=== PATIENT | female | born 1965 | race Caucasian/White ===

== ENCOUNTER → 2023-12-09 20:04 | Outpatient (REF) | payer OTHER, SELFPAY | LOC: MRI 3T 20:04 | PROVIDERS: ATTENDING PHYSICIAN Physician Assistant | DX: M54.2 Cervicalgia (principal); G89.28 Other chronic postprocedural pain; Z98.890 Other specified postprocedural states | CPT/HCPCS: 72141 ==

== ENCOUNTER 2025-01-29 15:20 | Inpatient (IN) | payer OTHER, SELFPAY ==
[2025-01-29] VITALS (7 sets, daily range): BP systolic 126–165; BP diastolic 69–90; BMI 43.2; BMI 41.6
[2025-01-29 13:25] LABS: Hematocrit 40.5 % (37.0-47.0); Hemoglobin 13.9 g/dL (12.0-16.0); Mean Corp Hgb Conc. 34.3 g/dL (33.0-37.0); Mean Corpuscular Volume 93.5 fL (81.0-99.0); Nucleated Red Blood Cells % 0 %; Platelet Count 296 10^3/uL (130-400); Red Cell Dist. Width 12.7 % (11.5-14.5)
[2025-01-29 13:41] LABS: ALT (SGPT) 42 U/L (0-35); AST (SGOT) 48 U/L (14-36); Albumin 4.3 g/dl (3.5-5.0); Alkaline Phosphatase 94 U/L (38-126); Blood Urea Nitrogen 15 mg/dl (7-17); Calcium 9.5 mg/dl (8.4-10.2); Carbon Dioxide 24 mmol/L (22-30); Chloride 107 mmol/L (98-107); Estimated Creatinine Clearance 118 ml/min; Glucose 112 mg/dl (70-99); Potassium 3.8 mmol/L (3.5-5.1); Sodium 138 mmol/L (135-145); Total Protein 7.3 g/dl (6.3-8.2); eGFR > 60.00
[2025-01-29] MEDS: DECADRON 10 MG IV (13:43)
[2025-01-29] MEDS: DUONEB 3 ML INH ×3 (13:43→23:10)
--- NOTE | 2025-01-29 14:05 | ED.GENMED ---
History of Present Illness
General
Chief Complaint: Breathing Problem
Source: patient
Exam Limitations: none
Time Seen by Provider: 01/29/25 13:21
Nursing documentation reviewed up to this point in time: agreed with
History of Present Illness
History of Present Illness:
59-year-old female cough shortness of breath history of asthma history of colon cancer no history of DVT PE has been coughing and wheezing for a few days, seen in urgent care given steroids antibiotics and albuterol symptoms persisted, no fever no
hemoptysis
Past History
Past History
ED Past Medical History: Asthma and Other (Stomach ulcers)
ED Past Surgical History: Appendectomy, Gynecological (Ovarian cyst, right oophorectomy) and Orthopedic (Cervical fusion)
Social History
Tobacco: Former smoker
Alcohol: None
Drug: None
Personal: Single
Living: with family
Employment: Retired
Phy Exam
Physical Exam
Physical Exam:
Physical Exam
General: 59 female sitting upright coughing
Neck: No jaundice
Heart: s1/s2 regular rate and rhythm, no murmur. equal radial pulses.
Lungs: Wheezing rhonchi
Abdomen: Nontender
Neuro: alert and oriented. no focal neurological deficits
Skin: no rash
Psychiatric: well kept. interactive and cooperative
Extremities: no edema. no calf tenderness.
Scores
Heart Failure Risk
Heart Failure Risk Score: Not Applicable
Course
Orders/Labs/Results
Orders:
Orders
01/29/25 13:08
Electrocardiogram (*1) Urgent
Reason for Study: Chest Pain
EKG- Treatment ONCE
01/29/25 13:12
Complete Blood Count/With Diff Urgent
Comprehensive Metabolic Panel Urgent
01/29/25 13:39
CR Chest Portable - 1 View Urgent
Comment:
Reason For Exam: sob
Reason Study Needs to be Portable: Patient Unstable
01/29/25 13:40
IV Insert/Care/Rem.- Treatment PRN
Dexamethasone Sod Phosphate [Decadron] 10 mg IV NOW STA
Ipratropium/Albuterol Sulfate [Duoneb] 3 ml INH R NOW STA
01/29/25 14:19
NT-proBNP Urgent
Comment: ADD ON
Troponin I Urgent
01/29/25 14:22
COVID-19 Antigen Urgent
Source: Nasal Swab
Influenza A+B Rapid Molecular Urgent
SARA Source: Nasal Swab
Specimen Description:
01/29/25 14:47
Albuterol Sulfate [Ventolin Nebules] 7.5 mg INH R NOW STA
01/29/25 Dinner
Cholesterol Lowering
At Your Request: Full Participation
Does patient need a safe tray?: No
Cholesterol Lowering: Sodium, 2 Gram
01/29/25 15:01
Admit/Transfer Patient As Directed
Co-Sign Provider:
Level of Care: Inpatient admission
Assign to:: Telemetry
Physician / Group: albert griffiths
Diagnosis: acute hypoxic resp insuff 2/2 status asthmaticus, abn ekg
Reason for Telemetry: Arrhythmia
Date to Stop Telemetry: 02/01/25
Time to Stop Telemetry: 11:00
Reason for Hospitalization: acute hypoxic resp insuff 2/2 status asthmaticus, abn ekg
Expected length of stay greater than two midnights?: Yes
ELOS- Estimated Length of Stay in days: 3
I certify the patient meets the requirements for IP care: Yes
Code Status As Directed
Resuscitation Status: Full Code
01/29/25 15:04
PRN Pain Medication Management As Directed
May give lesser potent ordered pain med per pt: Yes
preference::
Protocol:: Medication orders for pain may be administered in a
manner that supports deferring to patient preference
when the pt is:
- Requesting an ordered lesser potent pain medication.
Least to most potent pain medications are defined
as: acetaminophen < NSAID < tramadol < opioids
(morphine, oxycodone, hydromorphone).
- Requesting a lesser dose of the same medication IF
ORDERED.
- Requesting a less intrusive route of administration
if both routes are prescribed by the provider (PO <
IV).
01/29/25 19:00
Acetaminophen [Tylenol] 650 mg PO Q4HPRN PRN
Ipratropium/Albuterol Sulfate [Duoneb] 3 ml INH R Q4HPRN PRN
01/29/25 19:27
Enoxaparin Sodium [Lovenox] 40 mg SC QPM
Ipratropium/Albuterol Sulfate [Duoneb] 3 ml INH R QID
01/29/25 19:27
Activity As Directed
Activity Level: As Tolerated
Vital Signs As Directed
Frequency: Per unit guidelines
O2 Therapy [RESP] Routine
Nasal Cannula Liter Flow: 2 LPM
Titrate/Wean O2 to maintain O2 sat greater than (%): 92
Pulse Ox/spot Check [RESP] Routine
Quantity: 1
Pt Eval And Treat Routine
Activity Level: As Tolerated
DX Deep Vein Thrombosis Video Routine
01/29/25 20:00
Benzonatate [Tessalon Perles] 100 mg PO BIDPRN PRN cough
01/29/25 22:00
Citalopram [Celexa] 10 mg PO HS
Trazodone [Desyrel] 50 mg PO HSPRN PRN sleep
01/30/25 06:57
Cardiovascular Evaluation IN AM
Complete Blood Count/With Diff IN AM
Comprehensive Metabolic Panel IN AM
Hgba1c [Glycohemoglobin (HgbA1c)] IN AM
01/31/25 06:00
Complete Blood Count/With Diff IN AM
Comprehensive Metabolic Panel IN AM
02/01/25 06:00
Complete Blood Count/With Diff IN AM
Comprehensive Metabolic Panel IN AM
02/01/25 11:00
DC Protocol for Telemetry ONCE
Abnormal Lab Results
01/29/25
13:12
WBC 13.0 H 10^3/uL
(4.8-10.8)
MCH 32.1 H pg
(27.0-31.0)
Abs Immat Gran (auto) 0.1 H 10^3/uL
(0-0.05)
Absolute Neuts (auto) 7.6 H 10^3/uL
(1.4-6.5)
Absolute Lymphs (auto) 4.3 H 10^3/uL
(1.2-3.4)
Absolute Monos (auto) 0.8 H 10^3/uL
(0.1-0.6)
Glucose 112 H mg/dl
(70-99)
AST 48 H U/L
(14-36)
ALT 42 H U/L
(0-35)
01/29/25 13:12
01/29/25 13:12
Vital Signs
Initial and Last Documented VS:
Initial Vital Signs
Pulse Resp BP Pulse Ox
67 15 126/72 93
01/29/25 13:09 01/29/25 13:09 01/29/25 13:09 01/29/25 13:09
Last Documented Vital Signs
Temp Pulse Resp BP Pulse Ox
97.9 F 72 18 120/54 94
01/30/25 03:00 01/30/25 03:00 01/30/25 03:00 01/30/25 03:00 01/30/25 03:00
MDM/Problems Addressed
Differential Diagnosis Includes:
Asthmatic bronchitis bronchitis heart failure pneumonia
MDM/Problems Addressed:
Cough shortness of breath
Chronic conditions affecting care: Asthma
Acute Exacerbation and/or Progression of Chronic Illness: Asthma
*Pulse Oximetry
SaO2: 93
Nasal Cannula flow liters per minute: 2
Oxygen Mode of Delivery: Simple mask
Patient hypoxic: yes
*EKG
Interpretation: abnormal
Comparison EKG: no comparison EKG present
Heart Rate: 78
Rate: normal
Rhythm: sinus
Ischemia: ST depression
*Solar System Designer Interpretation
Rate: normal
Interpretation: normal
Heart Rate: 78
Rhythm: sinus
*Critical Care Note
Total Time (30-74mins, 75-104mins- exclusive of procedures): 22
Update Note
Update Note:
Update suspect asthmatic bronchitis, cough shortness of breath, does have an abnormal EKG no old in our system,
Chest x-ray noted will add troponin
Patient likely require admission
ED Attending Note
-
Portions of this chart may have been created with voice recognition software.� Occasional wrong word or��sound alike� substitutions may have occurred due to the inherent limitations of voice recognition software.
Discharge Plan
Departure
Patient Disposition: Admit
Date of Disposition: 01/29/25
Time of Disposition: 14:12
Admit to: Telemetry
Presentation/result/management discussed w/ accepting MD/DO: Hospitalist
Patient with high blood pressure during this ER visit?: No
Condition: Fair
Discharge Problem:
Asthma exacerbation
Interventions
Interventions:
*Risk Screen - Suicide Last Done: 01/29/25 13:10
*General Assessment Last Done: 01/29/25 13:09
*Neglect/Abuse Screening Last Done: 01/29/25 13:10
*ED COVID-19 Vaccine History Last Done: 01/29/25 13:09
*ED Influenza Vaccine History Last Done: 01/29/25 13:09
*Nursing Disposition Last Done: 01/29/25 19:06
ED- Cardiac Assessment Last Done: 01/29/25 13:14
ED- Pulmonary Assessment Last Done: 01/29/25 13:14
Discharge Date and Time
Discharge Date/Time: 01/29/25 19:07
--- NOTE | 2025-01-29 14:23 | HPS.HSE ---
Addendum entered and electronically signed by Greg Walter MD 01/29/25 16:21:
I saw and examined the patient.
The SALON SUPERVISOR or PA's note was reviewed and I agree with the note.
Comment:
59-year-old female with history of asthma complaining of coughing and wheezing over the past 2 weeks. Recent travel to [place] by plane. She was seen at urgent care on 01/27/2025 given steroids, antibiotics and albuterol where she has taken for 3 days
but symptoms have persisted.
Physical Exam
General: Conversant; No Pain, Fever or Chills
HEENT: Normocephalic, Anicteric, Moist mucous membranes, PERRLA, Ark[place] Conjunctivae and No Ptosis
Respiratory: less wheezes.
Cardiac: S1/S2 and Regular Rhythm; No Murmur, Rub, Gallop or Peripheral Edema
GI: Soft, Non Tender, Non Distended, Normal Bowel Sounds.
Genito-urinary: No Matos
Musculoskeletal: No Clubbing, No Cyanosis and No Edema
Skin: Warm and Dry; No Rash
Neuro: AO x 3, No Motor Deficits, Nonfocal/grossly intact, Cranial Nerves Intact and No Sensory Deficits; No Slurred Speech, Facial Droop, Tremors or Sedated
Psych: Calm
A/P
#Asthma exacerbation likely triggered by viral URI
-DuoNebs every 6 hours
-Dexamethasone 4 mg every 12 hours
-Chest x-ray does not appear to show any abnormalities
-D-dimer elevated 0.6
-CT PE result pending with recent travel.
# History of tracheomalacia
tries to sit up and avoid flat position
# Acute hypoxic respiratory insufficiency
SaO2 89- 90 % on RA
add O2 treatment
# Abnormal EKG
No chest pain
Positive SOB/ tightness but with asthma attack
negative troponin
#Transaminitis likely due to hepatic steatosis
#History of chronic back pain
#History of peptic ulcer
#Depression
#Obesity secondary to excess calories
Full code
DVT prophylaxis�heparin
Regular diet
Total time spent to see the patient, examine the patient, review data and lab result, discuss treatment plan with patient, ER doctor, nursing staff around 75 minutes
Original Note:
Family Physician
-
Family Physician:
Chief Complaint
-
Shortness of breath, wheezing x 2 weeks
History of Present Illness
59-year-old female with history of asthma complaining of coughing and wheezing over the past 2 weeks. She reports she was in [facility] 3 weeks ago attending a wedding. She returned home then became sick within 1 week. She was
seen at urgent care on 01/27/2025 given steroids, antibiotics and albuterol where she has taken for 3 days but symptoms have persisted. She returned to the urgent care today where she was actively wheezing and hypoxic was sent to the ER by EMS.
She denies fever, chills, hemoptysis, chest pain, palpitations, abdominal pain, nausea, vomiting, diarrhea, urinary symptoms. She has past medical history of asthma�mild, gastric ulcers, former smoker, anxiety, headaches, colon cancer status post
colon resection January 2023 and chemotherapy for 3 months, class III obesity.
Medical History
Past Medical History
Past Medical History: Reports Other
Additional Past Medical History:
asthma
gastric ulcers
former smoker
anxiety
headaches
Colon cancer status post colon resection January 2023 and chemotherapy for 3 months
class III obesity.
Past Surgical History: Reports Other
Additional Past Surgical History:
Colon cancer status post colon resection January 2023
Appendectomy
Ovarian cyst removal
Cervical fusion
Social History
Tobacco: Former Smoker (5 years stopped early 20s)
Alcohol: Occasional (1 drink a month)
Personal: Single
Living: Alone
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
Family History
Family History: Other (Mother history of COPD hypertension age 82 Father history OR, HLD age 70, 1 brother sleep apnea 1 sister history of cardiac arrhythmias, 2 paternal half sisters healthy)
Allergies / Home Medications
Allergies reflects when Allergies were last updated in [employer].
Home Medications with original date entered in [employer]
Allergy/Medication List:
Allergies
Allergy/AdvReac Type Severity Reaction Status Date / Time
No Known Allergies Allergy Verified 07/02/22 15:45
Home Medications
azithromycin 250 mg tablet 0 mg PO .COMPLEX 01/29/25
benzonatate 100 mg capsule 100 mg PO BIDPRN PRN cough 01/29/25
citalopram 10 mg tablet (Celexa) 10 mg PO HS 01/29/25
prednisone 20 mg tablet 40 mg PO DAILY 01/29/25
trazodone 50 mg tablet 50 mg PO HSPRN PRN sleep 01/29/25
Review of Systems
-
History Source: Patient
A 12 point ROS was completed and negative except as noted: Yes
Constitutional: Denies Fever, Fatigue or Chills
EENT: Denies Sore Throat or Runny Nose
Respiratory: Reports Cough and Trouble Breathing (Wheezing)
Cardiac: Denies Chest Pain, Diaphoresis, Palpitations or Syncope
Abdomen/GI: Denies Abdominal Pain, Nausea, Vomiting, Diarrhea, Constipated, Bloody Stools or Black Stools
: Denies Dysuria, Frequency, Flank Pain, Incontinence or Difficulty Voiding
Musculoskeletal: Denies Joint Pain or Edema
Skin: Denies Itching or Rash
Neurological: Denies Dizzy, Headache or Weakness
Endocrine: Reports No Symptoms
Hematologic/Lymphatic: Reports No Symptoms
Psych: Reports Calm
Physical Exam
Vital Signs
Vital Signs
Temp Pulse Resp BP Pulse Ox
98.0 F 66 14 135/90 90
01/29/25 13:11 01/29/25 14:15 01/29/25 14:00 01/29/25 14:00 01/29/25 14:15
Physical Exam
General: Conversant; No Pain, Fever or Chills
HEENT: NormoCephalic, Anicteric, Moist mucous membranes, PERRLA, Arkoma Conjunctivae and No Ptosis
Respiratory: Wheezes (Expiratory increased throughout left lung field); No Rales or Rhonchi
Cardiac: S1/S2 and Regular Rhythm; No Murmur, Rub, Gallop or Peripheral Edema
GI: Soft, Non Tender, Non Distended, Normal Bowel Sounds and No Hepatosplenomegaly
Rectal: Deferred by Provider
Genito-urinary: Deferred by me
Musculoskeletal: No Clubbing, No Cyanosis and No Edema
Skin: Warm and Dry; No Rash
Neuro: AO x 3, No Motor Deficits, Nonfocal/grossly intact, Cranial Nerves Intact and No Sensory Deficits; No Slurred Speech, Facial Droop, Tremors or Sedated
Psych: Calm
Laboratory Results
-
01/29/25 13:12
01/29/25 13:12
Laboratory Results
Total Bilirubin 0.6 mg/dl (0.2-1.3) 01/29/25 13:12
AST 48 U/L (14-36) H 01/29/25 13:12
ALT 42 U/L (0-35) H 01/29/25 13:12
Alkaline Phosphatase 94 U/L (38-126) 01/29/25 13:12
Impression/Plan
-
Impression/plan:
Admit to telemetry
#Status asthmaticus/history asthma�mild
#Acute hypoxic respiratory insufficiency secondary to status asthmaticus
History of suspected tracheomalacia 07/03/2022
No history of intubations, COVID/influenza negative
90-93% 2 L nasal cannula
- Recently treated with steroids prednisone 40 mg, Zithromax albuterol at urgent care 01/27/2025
-Decadron 10 mg given in ER
- Continue Decadron 4 mg every 12 hours
- DuoNebs scheduled and as needed
- Will consult pulmonary
-Start budesonide
-Will check CT PE along with CT abdomen pelvis as patient is due on Tuesday given history of colon cancer
-IV NSS
CXR: No acute cardiopulmonary process
#ST depression anterior lateral leads current history hypoxia
EKG NSR 76 bpm, QTc [address] depressions in anterior lateral leads no prior EKGs
- Follow troponin
- Consult [facility] cardiology
#History of suspected KACIE
Patient has never had outpatient sleep study completed
#Leukocytosis likely secondary to recent steroid use
WBC 13 afebrile
#Mild transaminitis likely reactive
AST 48, ALT 42 will trend
#Former smoker
Smoked for 5 years quit mid 20s
#Anxiety
-Continue Celexa
#Colon cancer status post colon resection January 2023 and chemotherapy for 3 months
Patient due for CT chest abdomen pelvis on 02/04/2025-we will check today 01/29/2025
Follows with [facility]
#Class III obesity�BMI 43.2
Affects all aspects of care
Weight loss recommended
Other PMH:
History of shingles in past
History of gastric ulcers
Headaches�no acute headache today
DVT prophylaxis
Subcu Lovenox unless CT PE positive then we will change
Full code
[2025-01-29 14:58] LABS: COVID-19 Antigen Negative (Negative)
[2025-01-29] MEDS: VENTOLIN NEBULES 7.5 MG INH (15:04)
[2025-01-29 15:08] LABS: Troponin I < 0.012 ng/ml
--- NOTE | 2025-01-29 16:12 | EDCM ---
CM reviewed chart and met with pt bedside in ED. Lives alone in 2 story home but stays on first floor, no PEDRITO.
Independent in ADLs, personal care and ambulation at baseline. No assistive devices. Only DME is Nebulizer machine from [employer].
Confirms prescription coverage.
No hx VN or SNF.
PCP: Tamela Mathis
Pharmacy: [facility] .
Anticipate discharge home, CM will continue to follow for all discharge planning needs.
--- NOTE | 2025-01-29 16:15 | CON.CAR ---
Addendum entered and electronically signed by Dariel Slater MD 01/29/25 18:36:
59-year-old woman admitted with acute asthma, now with deep anterolateral T wave inversions and prolonged QT. Troponin is undetectable.
PMH: Asthma, peptic ulcer disease, depression, chronic back pain, cervical discectomy, colon cancer status post resection and chemotherapy, tracheomalacia benign positional vertigo, migraines, morbid obesity
Outpatient meds: Reviewed
138/87, pulse 79, respiratory rate 28, afebrile, obese, some respiratory distress, diffuse wheezes, regular rate and rhythm, soft systolic murmur base to apex, extremities with 1-2+ edema
Chest x-ray: Cardiomegaly, increased interstitial markings
ECG: Sinus rhythm deep anterolateral T wave inversion suggestive of ischemia
White count 13.0, BUN and creatinine are 15 and 0.6, potassium is 3.8, troponin undetectable, proBNP pending
Chest CT: Negative for PE
Impression:
Acute exacerbation of asthmatic bronchitis
Anterolateral T wave inversions suspicious for ACS, but with negative troponin
Tracheomalacia
Cervical discectomy
Colon cancer, resected and chemotherapy presumably 5-FU
Plan:
Note below reviewed in detail and agree, unless otherwise specified
She presents with an acute exacerbation of asthmatic bronchitis, with some respiratory distress.
Her EKG is consistent with anterolateral ischemia, though her troponin is undetectable. No prior EKGs are currently available. She has no history of chest pain. There is however a murmur.
Diagnostic considerations would be ACS days-weeks weeks ago with subsequent improvement in LAD distribution perfusion such that troponin has normalized, Takotsubo cardiomyopathy related to severe acute exacerbation of asthmatic bronchitis, or
possibly apical hypertrophic cardiomyopathy with longstanding EKG changes. With presumed prior treatment to 5-FU, her risk of vascular events is increased.
Will proceed with echocardiography and trend troponins and EKGs.
Eventually she will need an ischemic evaluation, pharmacologic sestamibi study probably contraindicated at present related to pulmonary status, exercise sestamibi versus catheterization would be reasonable if she can ambulate.
We will continue to follow.
Original Note:
Consultation
Consultation Request
Date/Time Consultation Performed: 01/29/25
Requesting Provider: Dr. Walter
Performing Provider: Montse Sams PA-C for Dr. MIKIE Slater
Reason for Consultation: abnormal EKG
Medical History
-
Chief Complaint: SOB
History of Present Illness:
Patient is a 59-year-old female with past medical history of asthma, cervical discectomy, history of colon cancer status postresection and chemotherapy, collapsed trachea diagnosed 06/2024 who presents to [facility] ER for evaluation of 2 weeks of
worsening shortness of breath. She reports after her asthma admission in June 2024 she underwent allergy testing which was significantly positive for ragweed. She states she knows that ragweed levels are very high right now. She states that on
Tuesday she was started on steroid therapy without significant improvement. She reports significant orthopnea, and states she has to sleep essentially sitting up. She denies lower extremity edema or abdominal bloating. She does report some weight
gain, but attributes this to recent steroid use. EKG is noted to be abnormal resulting in cardiology consultation. No prior for comparison in our systems. Denies chest pain. She has family history of CAD in father in his 70s.
PMH:
Asthma
Collapsed trachea diagnosed 06/2024
History of cervical discectomy
History of colon cancer status postresection and chemotherapy
Depression
Obesity
Past Medical History
Past Medical History: Other (In HPI)
Social History
Tobacco: Former Smoker (Remote, in her 20s)
Alcohol: None
Drug: None
Living: Alone
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
Family History
Family History: CAD (in father in his 70s)
Allergies / Home Medications
Allergy/AdvReac Type Severity Reaction Status Date / Time
No Known Allergies Allergy Verified 07/02/22 15:45
�Medication �Instructions �Recorded �Confirmed �Type
azithromycin 250 mg tablet 0 mg PO .COMPLEX 01/29/25 01/29/25 History
benzonatate 100 mg capsule 100 mg PO BIDPRN PRN cough 01/29/25 01/29/25 History
citalopram 10 mg tablet (Celexa) 10 mg PO HS 01/29/25 01/29/25 History
prednisone 20 mg tablet 40 mg PO DAILY 01/29/25 01/29/25 History
trazodone 50 mg tablet 50 mg PO HSPRN PRN sleep 01/29/25 01/29/25 History
Review of Systems
-
History Source: Patient
All other systems: Negative unless noted
Physical Exam
Vital Signs
Temp Pulse Resp BP Pulse Ox
98.0 F 79 28 138/87 91
01/29/25 13:11 01/29/25 15:45 01/29/25 15:45 01/29/25 15:00 01/29/25 15:45
Lab Results
01/29/25 13:12
01/29/25 13:12
Troponin I < 0.012 ng/ml 01/29/25 14:19
Physical Exam
General: Other (Dyspneic, coughing. Obese. On supplemental O2)
HEENT: Normocephalic, Anicteric and Moist Mucous Membranes
Respiratory: Wheezes and Rhonchi
Cardiac: S1/S2 and Regular Rhythm
GI: Soft, Non Tender, Non Distended and Normal Bowel Sounds
Musculoskeletal: No Clubbing, No Cyanosis and No Edema
Skin: Warm and Dry
Neuro: AO x 3
Impression / Plan
-
Primary child care sitter: None
Assessment:
Presentation with shortness of breath
Acute asthma exacerbation
Abnormal EKG
Collapsed trachea diagnosed 06/2024
History of cervical discectomy
History of colon cancer status postresection and chemotherapy
Depression
Obesity
mild LFT elevation
ECHO 01/30/25: pending
Plan:
- Patient presents due to shortness of breath and is being treated for acute asthma exacerbation. Chest x-ray with low lung volumes and no acute cardiopulmonary process.
- Continue supplemental O2, wean as able
- IV steroid therapy as per primary service. Consider pulmonology consultation
- EKG abnormal with essentially diffuse T wave inversion with no prior to compare. Will attempt to obtain prior EKG, patient thinks she had 1 at [facility] in the past. Denies chest pain, with significant cough and reactive airway on exam
- Troponin negative x 1. Trend
- Serial EKGs
- Echo in a.m.
- check proBNP
- check lipids. with mild LFT elevation, follow
- Unless results of above grossly abnormal, would allow to recover from acute asthma exacerbation and would consider for outpatient stress testing for further evaluation
- Will follow
Data Reviewed
-
EKG: Tracing Personally Visualized and interpreted
Radiology: Report Reviewed by me
Labs: Labs Reviewed by me
Old Records: Reviewed
--- NOTE | 2025-01-29 19:35 | PTCARENOTE ---
Pt arrived onto floor @1935. Pt AAOx3 and able to ambulate into room without assistance. Pt on 2L O2, with no complaints of pain at this time. Pt oriented to room and call akng; will continue to monitor
[2025-01-29] MEDS: PULMICORT 0.5 MG INH (19:52)
[2025-01-29] MEDS: DUONEB INH (19:56)
--- NOTE | 2025-01-29 20:02 | PTCARENOTE ---
Rn clinical education academic coordinator- Admission assessment completed remotely via phone.
[2025-01-29] MEDS: LOVENOX 40 MG SC (20:59)
[2025-01-29] MEDS: ASPIRIN 325 MG PO (20:59)
[2025-01-29] MEDS: CELEXA 10 MG PO (21:00)
[2025-01-29] MEDS: ANESTHETIC LOZENGE 1 LOZENGE PO (23:57)
[2025-01-29] MEDS: DECADRON 4 MG IV (23:59)
[2025-01-30] MEDS: TESSALON PERLES 100 MG PO (01:20)
[2025-01-30] MEDS: DUONEB 3 ML INH ×7 (01:27→22:41)
[2025-01-30 03:00] VITALS: BP 120/54
[2025-01-30] MEDS: ANESTHETIC LOZENGE 1 LOZENGE PO (05:23)
[2025-01-30 07:19] LABS: Hematocrit 40.5 % (37.0-47.0); Hemoglobin 13.0 g/dL (12.0-16.0); Mean Corp Hgb Conc. 32.1 g/dL (33.0-37.0); Mean Corpuscular Volume 96.0 fL (81.0-99.0); Nucleated Red Blood Cells % 0 %; Platelet Count 296 10^3/uL (130-400); Red Cell Dist. Width 12.8 % (11.5-14.5)
[2025-01-30 07:35] VITALS: BP 145/75
[2025-01-30 07:40] LABS: ALT (SGPT) 45 U/L (0-35); AST (SGOT) 38 U/L (14-36); Albumin 4.4 g/dl (3.5-5.0); Alkaline Phosphatase 87 U/L (38-126); Blood Urea Nitrogen 14 mg/dl (7-17); Calcium 9.6 mg/dl (8.4-10.2); Carbon Dioxide 27 mmol/L (22-30); Chloride 105 mmol/L (98-107); Estimated Creatinine Clearance 115 ml/min; Glucose 196 mg/dl (70-99); HDL Cholesterol 102 mg/dl; LDL Cholesterol, Calculated 95 mg/dl; Potassium 4.7 mmol/L (3.5-5.1); Sodium 138 mmol/L (135-145); Total Protein 7.3 g/dl (6.3-8.2); Very Low Density Lipoprotein 16 mg/dl (0-30); eGFR > 60.00
[2025-01-30 07:48] LABS: Troponin I < 0.012 ng/ml
[2025-01-30] MEDS: PULMICORT 0.5 MG INH ×2 (08:17→19:37)
[2025-01-30 08:32] LABS: Glycohemoglobin (HgbA1c) 6.1 % (4.0-5.6)
--- NOTE | 2025-01-30 09:43 | CM ---
CM reviewed chart, patient seen bedside.
Patient remains on O2- does not wear home O2. Otherwise independent.
Plan likely home no needs, will continue to follow.
Plan; home no needs, watch for O2 needs if unable to wean
--- NOTE | 2025-01-30 09:44 | CON.PUL ---
Consultation
Consultation Request
Date/Time Consultation Requested: 01/30/2025-8 AM
Date/Time Consultation Performed: 01/30/2025-8:30 AM
Requesting Provider: hospitalist
Performing Provider: Dr. Navarro
Reason for Consultation: Shortness of breath
Medical History
-
Chief Complaint: Shortness of breath/wheezing
History of Present Illness:
59-year-old mild previous smoking female with a history of underlying asthma, allergies, peptic ulcer disease, tracheal [place], depression, chronic back pain last admitted with asthma exacerbation in 2022 admitted with coughing and wheezing for
the past 2 weeks as well as recent plane travel to [place] unresponsive to urgent care prescribed steroids and antibiotics as well as albuterol noted to have asthma exacerbation-pulmonary consulted for asthma/shortness of breath 01/30/2025.
Patient states that she has had progressive shortness of breath, chest wheezing, unresponsive to steroids and albuterol, no chest pain, pleurisy, hemoptysis, abdominal pain, nausea, focal weakness or leg swelling. She does snore at night, feels
unrefreshed and has daytime somnolence.
Past Medical History
Past Medical History: None (Asthma. Allergies. Morbid obesity. KACIE suspected. Gastric ulcers. 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 Anxiety. Colon cancer/resection January 2023/chemotherapy. Appendectomy. Ovarian cyst removal. Cervical fusion.)
Social History
Tobacco: Former Smoker (Less than 5-pack-year quit in her 20s)
Alcohol: Occasional
Drug: None
Personal: Single
Occupational Exposures: No known asbestos exposure
Environmental Exposures: no known tuberculosis exposure
Family History
Family History: Reviewed & Not Pertinent (Mother-COPD and hypertension. Father-CAD hyperlipidemia. Brother-KACIE.)
Allergies / Home Medications
Allergies
Allergy/AdvReac Type Severity Reaction Status Date / Time
No Known Allergies Allergy Verified 07/02/22 15:45
Home Medications
�Medication �Instructions �Recorded �Confirmed �Last Taken �Type
azithromycin 250 mg tablet 0 mg PO .COMPLEX Infection 01/29/25 01/29/25 Unknown History
benzonatate 100 mg capsule 100 mg PO BIDPRN PRN cough 01/29/25 01/29/25 Unknown History
citalopram 10 mg tablet (Celexa) 10 mg PO HS Depression 01/29/25 01/29/25 01/28/25 History
prednisone 20 mg tablet 40 mg PO DAILY Anti-Inflammatory 01/29/25 01/29/25 01/29/25 History
trazodone 50 mg tablet 50 mg PO HSPRN PRN sleep 01/29/25 01/29/25 Unknown History
Review of Systems
-
Unable to Obtain full review of systems at this time due to: Other ( per HPI)
Vitals / Labs / Diagnostic Testing
Vital Signs
Temp Pulse Resp BP Pulse Ox
97.4 F 89 19 145/75 98
01/30/25 07:35 01/30/25 08:25 01/30/25 08:25 01/30/25 07:35 01/30/25 08:25
Lab Data
01/30/25 06:57
01/30/25 06:57
Microbiology
01/29/25 14:22 Nasal Swab Influenza Types A & B (PAULO) - Final
Negative for Influenza A & B, NAAT
Negative results must be combined with clinical observations
and patient history.
Nucleic Acid Amplification test (NAAT)performed on the
[employer] platform.
Diagnostic Testing:
Physical Exam
-
Exam:
Well-nourished and well-developed in no apparent distress
HEENT-atraumatic, normocephalic, thick neck, no stridor
Neck-supple, no JVD, no bruit
Heart-regular rate and rhythm-no murmurs, rubs or gallops
Chest with diminished breath sounds, mildly prolonged expiratory time and forced wheezes and few rhonchi but no crackles
Back-no tenderness
Abdomen-soft, nontender, nondistended, no hepatosplenomegaly
Extremities-no cyanosis, clubbing, edema and good peripheral pulses
Integument-intact, no rashes, lesions or ecchymosis
Neurology-alert and oriented, nonfocal motor and sensory exam
Assessment
-
59-year-old mild previous smoking female with a history of underlying asthma, allergies, peptic ulcer disease, tracheal [place], depression, chronic back pain last admitted with asthma exacerbation in 2022 admitted with coughing and wheezing for
the past 2 weeks as well as recent plane travel to [place] unresponsive to urgent care prescribed steroids and antibiotics as well as albuterol noted to have asthma exacerbation-pulmonary consulted for asthma/shortness of breath 01/30/2025
Asthma-moderate persistent with acute exacerbation
Abnormal EKG-anterolateral T wave abnormalities
Leukocytosis
Mild transaminitis
Hyperglycemia-A1c 6.1
Conditions present prior to admission:
Asthma-mild to moderate persistent-does not follow with pulmonary
Former [id number]-year quit 2020
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
Morbid obesity-BMI 43
Fatty liver
Gallbladder sludge
Diverticulosis
KACIE suspected-has not had sleep study yet
Gastric ulcers.
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
Anxiety.
Colon cancer/resection January 2023/chemotherapy.
Appendectomy. Ovarian cyst removal. Cervical fusion.
Plan
Acute decompensation likely related to viral infection induced asthma exacerbation
Supplemental oxygen as needed
Aspiration precautions
Incentive spirometry
Pulmicort and DuoNebs continue
Decadron 4 mg IV every 12 hours-no change
Tessalon Perles as needed
Mucolytic's
Influenza negative
Covid negative
Chest x-ray without clear infiltrate
Observe off antibiotics-follow temperature curve and leukocytosis
Cardiology evaluation with abnormal EKG-reviewed briefly with them
Echocardiogram pending
Significant signs and symptoms of obstructive sleep apnea-also has a history of tracheomalacia on CT chest-no stridor at this time
Associations with untreated sleep apnea have been reviewed
Outpatient diagnostic polysomnogram is recommended-treatment options including CPAP, weight loss, positional therapy, oral appliances, surgical interventions will be reviewed
Patient may be a candidate for Zepbound
Outpatient follow-up with colorectal surgery/oncology
DVT prophylaxis-on Lovenox
GI prophylaxis-on pantoprazole
Nutrition
Early immobilization
Outpatient pulmonary/sleep disorders evaluation-allergy testing, eosinophil, IgE, PFTs, as well as sleep study-further evaluation of possible tracheomalacia noted on CT
Diagnostic data:
Chest x-ray 06/30/2022-NAD
Chest x-ray 07/02/2022-NAD
Chest x-ray 01/29/2025-low lung volumes, NAD
CT chest 07/02/2022-negative for pulmonary embolism,, bronchial wall thickening, bronchitis, inverted U configuration of the trachea in the upper chest suggesting tracheomalacia, fatty infiltration of liver
CT chest abdomen and pelvis 01/29/2025-no evidence for pulmonary embolism, mild subsegmental atelectasis, mild decreased bilateral lung volumes, mild cardiomegaly, diffuse fatty infiltration of the liver, gallbladder sludge, previous right
hemicolectomy, diverticulosis
Data Reviewed
-
EKG: Report reviewed by me
Radiology: Report reviewed by me
CT Scan: Report reviewed by me
Medical Tests (Nuc Med, Echo etc): Report reviewed by me
Labs: Labs reviewed by me
Old Records: Reviewed
Total Time Spent with Patient (in minutes): 65
--- NOTE | 2025-01-30 10:00 | W.PN.HOSP.TC ---
Today's Communication/Plan
-
c/w steroid
Nebs
Echo
Cough medicine ( Tessalon & Robitussin AC)
Tylenol for pain
Assessment / Plan
Assessment / Plan
Physical Exam
General: Conversant; No Pain, Fever or Chills. Not in distress
HEENT: Normocephalic, Anicteric, Moist mucous membranes, PERRLA, [place] Conjunctivae and No Ptosis
Respiratory: less wheezes/ rales.
Cardiac: S1/S2 and Regular Rhythm; No Murmur, Rub, Gallop or Peripheral Edema
GI: Soft, Non Tender, Non Distended, Normal Bowel Sounds.
Genito-urinary: No Matos
Musculoskeletal: No Clubbing, No Cyanosis and No Edema
Skin: Warm and Dry; No Rash
Neuro: AO x 3, No Motor Deficits, Nonfocal/grossly intact, Cranial Nerves Intact and No Sensory Deficits; No Slurred Speech, Facial Droop, Tremors or Sedated
Psych: Calm
A/P
#Asthma exacerbation likely triggered by viral URI
She is feeling better
still on O2
-DuoNebs every 6 hours
-Dexamethasone 4 mg every 12 hours
-Chest x-ray does not appear to show any abnormalities
-D-dimer elevated 0.6
-CT chest showed atelectasis/ scarring
f/w pulmonary recommendations
# History of tracheomalacia
tries to sit up and avoid flat position
# hx of colon cancer status post right hemicolectomy, chemotherapy, currently not on medication and in remission. She has abdominal discomfort consistent with persistent cough. Give Tylenol. Give cough medicine. CAT scan of the abdomen pelvis
did not show acute findings. Patient was given a copy of her CAT scan study.
# Acute hypoxic respiratory insufficiency
SaO2 89- 90 % on RA
added O2 treatment
# Abnormal EKG
No chest pain
Positive SOB/ tightness but with asthma attack
negative troponin
Echo for today
Appreciate cardiology help
#Transaminitis likely due to hepatic steatosis with HGB A1C 6.1 c/w metabolic syndrome. BMI 41 / obesity
Weight loss is essential, she is aware
#History of chronic back pain
#History of peptic ulcer
#Depression
#Obesity secondary to excess calories
Full code
DVT prophylaxis�heparin
Regular diet
Total time spent to see the patient, examine the patient, review data and lab result, discuss treatment plan with patient, consultants, nursing staff around 55 minutes
Anticipated Discharge: 24 - 48 hours
Subjective/Interval History
-
Date of Service: January 30, 2025
No chest pain
No sob
Positive cough
No fevers
Objective Data
-
Labs:
Laboratory Results
01/30/25
06:57
WBC 13.0 H
Hgb 13.0
Hct 40.5
Plt Count 296
Sodium 138
Potassium 4.7
Chloride 105
Carbon Dioxide 27
BUN 14
Creatinine 0.6
Glucose 196 H
Calcium 9.6
Total Bilirubin 0.5
AST 38 H
ALT 45 H
Alkaline Phosphatase 87
Vital Signs:
Vital Signs
Temp Pulse Resp BP Pulse Ox
97.4 F 89 19 145/75 98
01/30/25 07:35 01/30/25 08:25 01/30/25 08:25 01/30/25 07:35 01/30/25 08:25
[2025-01-30] MEDS: TYLENOL 1000 MG PO (10:16)
--- NOTE | 2025-01-30 10:17 | W.PN.CARDCBS ---
Addendum entered and electronically signed by Lio Salas MD 01/30/25 12:50:
I saw and examined the patient.
The Branner Machine Tender's note was reviewed and I agree with the note.
Comment: Briefly, 59-year-old woman past medical history of asthma presenting with acute asthma exacerbation/bronchitis. Cardiology was consulted for abnormal ECG.
Respiratory status is significantly improved today with steroids/antibiotics/nebulizer treatments. No longer actively wheezing at the time of my evaluation.
Patient was able to pull up a copy of her old ECG 01/12/23 via [facility] portal on her cell phone which showed diffuse T wave inversions and is similar to the the two tracings done this hospitalization suggesting that this ECG abnormality is chronic
Not reporting any chest discomfort
Troponin is undetectable x2 here
Transthoracic echocardiogram with hyperdynamic LV function and no significant valvular pathology
Would recommend outpatient cardiology follow-up and consideration for ischemic evaluation at that time. Given her body habitus PET MPI would be a reasonable option once optimized from a respiratory standpoint.
Stable cardiac status. We will sign off. Outpatient follow-up to be arranged.
Original Note:
Today's Communication / Plan
-
check echo
treatment of asthmatic bronchitis
wean supp O2
no CP. trops negative
Impression / Plan
-
Primary darkroom worker: None
Assessment:
Presentation with shortness of breath
Acute asthma exacerbation/asthmatic bronchitis
Abnormal EKG
Collapsed trachea diagnosed 06/2024
History of cervical discectomy
History of colon cancer status postresection and chemotherapy
Depression
Obesity
mild LFT elevation
ECHO 01/30/25: pending
Plan:
- Patient presents due to shortness of breath and is being treated for acute asthmatic bronchitis. pulm following
- breathing improving
- Continue supplemental O2, wean as able
- EKG abnormal with anterolateral T wave inversions. patient was able to pull up prior EKG through portal on [facility] from 01/12/23 which showed similar anterolateral T wave inversions
- Troponins serially negative. no CP
- check echo
- LDL 95. with mild LFT elevation, follow
- pending results of echo, will determine need and timing of ischemic evaluation
-d/w pulmonary
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
Subjective
Date of Service: January 30, 2025
reports breathing improving. no CP
Objective
Labs:
01/30/25 06:57
01/30/25 06:57
Labs
Hgb 13.0 g/dL (12.0-16.0) 01/30/25 06:57
Hct 40.5 % (37.0-47.0) 01/30/25 06:57
Plt Count 296 10^3/uL (130-400) 01/30/25 06:57
Sodium 138 mmol/L (135-145) 01/30/25 06:57
Potassium 4.7 mmol/L (3.5-5.1) 01/30/25 06:57
BUN 14 mg/dl (7-17) 01/30/25 06:57
Creatinine 0.6 mg/dL (0.6-1.0) 01/30/25 06:57
Glucose 196 mg/dl (70-99) H 01/30/25 06:57
Troponins
01/29/25 01/30/25
14:19 06:57
Troponin I < 0.012 < 0.012
Vital Signs and I&O:
Vital Signs
Temp Pulse Resp BP Pulse Ox
97.4 F 89 19 145/75 98
01/30/25 07:35 01/30/25 08:25 01/30/25 08:25 01/30/25 07:35 01/30/25 08:25
Vital Signs
Temp Pulse Resp BP Pulse Ox
97.4 F 89 19 145/75 98
01/30/25 07:35 01/30/25 08:25 01/30/25 08:25 01/30/25 07:35 01/30/25 08:25
Physical Exam
Physical Exam
GEN: No distress, awake, alert, oriented x3. obese. on supp O2
HEENT: supple, anicteric, mmm, eomi
LUNGS: Exp wheezes
CV: Reg on tele
EXT: No cyanosis, clubbing, edema
NEURO: Gross non-focal
SKIN: Warm, pink, dry. No rash
--- NOTE | 2025-01-30 11:05 | CARDSERVLU ---
Echocardiogram with [facility] completed after protocol screening completed. Allergies verified.
Patent IV site: __Rt AC___
IV site flushed with 0.9% NaCl pre and post administration.
Diluted bolus method utilized to enhance visualization of ventricular shannon.
Total volume given: _1.5__ mL
Patient tolerated all procedures well without complications.
[2025-01-30 11:27] VITALS: BP 128/77
[2025-01-30] MEDS: ROBITUSSIN AC 10 ML PO ×2 (11:31→19:57)
[2025-01-30] MEDS: ZOFRAN 4 MG PO (12:32)
[2025-01-30] MEDS: DECADRON 4 MG IV (12:32)
[2025-01-30] MEDS: FLUSH (NSS) 2 FLUSH IV (12:33)
[2025-01-30 15:35] VITALS: BP 154/85
[2025-01-30] MEDS: TESSALON PERLES 200 MG PO ×2 (17:10→19:57)
[2025-01-30] MEDS: LOVENOX 40 MG SC (17:10)
[2025-01-30 19:00] VITALS: BP 115/69
[2025-01-30] MEDS: CELEXA 10 MG PO (19:57)
[2025-01-30 22:39] VITALS: BP 107/57
[2025-01-31] VITALS (7 sets, daily range): BP systolic 106–125; BP diastolic 56–83; O2SAT 94
[2025-01-31] MEDS: DECADRON 4 MG IV (01:10)
[2025-01-31] MEDS: ROBITUSSIN AC 10 ML PO ×4 (01:43→22:21)
[2025-01-31] MEDS: DUONEB 3 ML INH ×5 (07:33→23:37)
[2025-01-31] MEDS: PULMICORT 0.5 MG INH ×2 (07:36→19:18)
[2025-01-31 07:41] LABS: Hematocrit 39.3 % (37.0-47.0); Hemoglobin 12.9 g/dL (12.0-16.0); Mean Corp Hgb Conc. 32.8 g/dL (33.0-37.0); Mean Corpuscular Volume 94.9 fL (81.0-99.0); Nucleated Red Blood Cells % 0 %; Platelet Count 305 10^3/uL (130-400); Red Cell Dist. Width 13.0 % (11.5-14.5)
[2025-01-31 08:13] LABS: ALT (SGPT) 44 U/L (0-35); AST (SGOT) 29 U/L (14-36); Albumin 4.1 g/dl (3.5-5.0); Alkaline Phosphatase 78 U/L (38-126); Blood Urea Nitrogen 15 mg/dl (7-17); Calcium 9.4 mg/dl (8.4-10.2); Carbon Dioxide 30 mmol/L (22-30); Chloride 105 mmol/L (98-107); Estimated Creatinine Clearance 115 ml/min; Glucose 147 mg/dl (70-99); Potassium 5.0 mmol/L (3.5-5.1); Sodium 139 mmol/L (135-145); Total Protein 7.0 g/dl (6.3-8.2); eGFR > 60.00
[2025-01-31 08:29] LABS: Glucose - Point of Care 136 mg/dl (70-99)
[2025-01-31] MEDS: NOVOLOG FLEXPEN-MODERATE RESISTANCE SC (08:37)
[2025-01-31] MEDS: TESSALON PERLES 200 MG PO ×3 (08:54→22:16)
[2025-01-31] MEDS: DELTASONE 40 MG PO (08:56)
[2025-01-31] MEDS: MIRALAX 17 GRAMS PO (09:02)
--- NOTE | 2025-01-31 09:50 | W.PN.HOSP.TC ---
Today's Communication/Plan
-
Likely discharge in a.m.
Changed to oral prednisone
Encourage ambulation
Weaning off oxygen
Assessment / Plan
Assessment / Plan
Physical Exam
General: Conversant; No Pain, Fever or Chills. Not in distress
HEENT: Normocephalic, Anicteric, Moist mucous membranes, PERRLA, [place] Conjunctivae and No Ptosis
Respiratory: less wheezes/ rales.
Cardiac: S1/S2 and Regular Rhythm; No Murmur, Rub, Gallop or Peripheral Edema
GI: Soft, Non Tender, Non Distended, Normal Bowel Sounds.
Genito-urinary: No Matos
Musculoskeletal: No Clubbing, No Cyanosis and No Edema
Skin: Warm and Dry; No Rash
Neuro: AO x 3, No Motor Deficits, Nonfocal/grossly intact, Cranial Nerves Intact and No Sensory Deficits; No Slurred Speech, Facial Droop, Tremors or Sedated
Psych: Calm
A/P
#Asthma exacerbation likely triggered by viral URI
She is feeling better, less cough, would like to continue with Tessalon and Robitussin/codeine as needed
still on O2, will wean off
-DuoNeb every 6 hours
- S/p dexamethasone 4 mg every 12 hours, will change to oral prednisone
-Chest x-ray does not appear to show any abnormalities
-D-dimer elevated 0.6
-CT chest showed atelectasis/ scarring
f/w pulmonary recommendations
# History of tracheomalacia
tries to sit up and avoid flat position
# hx of colon cancer status post right hemicolectomy, chemotherapy, currently not on medication and in remission. She has abdominal discomfort consistent with persistent cough. Give Tylenol. Give cough medicine. CAT scan of the abdomen pelvis
did not show acute findings. Patient was given a copy of her CAT scan study.
# Acute hypoxic respiratory insufficiency
SaO2 89- 90 % on RA
Will wean off O2 treatment
# Abnormal EKG
No chest pain
Positive SOB/ tightness but with asthma attack
negative troponin
Echo of the heart showed left ventricular ejection fraction 65 to 70%, no regional wall motion abnormality, normal right ventricular size and function, no significant valvular disease, no pericardial effusion. Discussed with manager of recruiting,
recommended outpatient cardiac stress test. Patient was made aware and verbalized understanding
Appreciate cardiology help
#Transaminitis likely due to hepatic steatosis with HGB A1C 6.1 c/w metabolic syndrome. BMI 41 / obesity
Weight loss is essential, she is aware
Insulin sign scale, discussed with patient regarding her weight and prediabetic status. She is in process to talk with her primary regarding weight loss medications
# Constipation, will add MiraLAX
#History of chronic back pain
#History of peptic ulcer
#Depression
#Obesity secondary to excess calories
Full code
DVT prophylaxis�heparin
Regular diet
Total time spent to see the patient, examine the patient, review data and lab result, discuss treatment plan with patient, consultants, nursing staff around 55 minutes
Anticipated Discharge: Within 24 hours
Subjective/Interval History
-
Date of Service: January 31, 2025
Feeling better
less cough and sob
+ constipation
Objective Data
-
Labs:
Laboratory Results
01/31/25
07:04
WBC 14.3 H
Hgb 12.9
Hct 39.3
Plt Count 305
Sodium 139
Potassium 5.0
Chloride 105
Carbon Dioxide 30
BUN 15
Creatinine 0.6
Glucose 147 H
Calcium 9.4
Total Bilirubin 0.6
AST 29
ALT 44 H
Alkaline Phosphatase 78
Vital Signs:
Vital Signs
Temp Pulse Resp BP Pulse Ox
97.4 F 65 16 106/68 92
01/31/25 07:35 01/31/25 07:37 01/31/25 07:37 01/31/25 07:35 01/31/25 08:11
I&O
01/30/25 01/31/25 02/01/25
06:59 06:59 06:59
Intake Total 720 / 720
Balance 720 / 720
--- NOTE | 2025-01-31 09:56 | W.PN.PUL.V3 ---
Today's Communication / Plan
-
Wean oxygen
Increase activity
Prednisone taper
Nebulizers
Outpatient pulmonary/sleep disorders follow-up
Assessment
-
59-year-old mild previous smoking female with a history of underlying asthma, allergies, peptic ulcer disease, tracheal [place], depression, chronic back pain last admitted with asthma exacerbation in 2022 admitted with coughing and wheezing for
the past 2 weeks as well as recent plane travel to [place] unresponsive to urgent care prescribed steroids and antibiotics as well as albuterol noted to have asthma exacerbation-pulmonary consulted for asthma/shortness of breath 01/30/2025
Asthma-moderate persistent with acute exacerbation
Abnormal EKG-anterolateral T wave abnormalities
Leukocytosis
Mild transaminitis
Hyperglycemia-A1c 6.1
Conditions present prior to admission:
Asthma-mild to moderate persistent-does not follow with pulmonary
Former [id number]-year quit 2020
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
Morbid obesity-BMI 43
Fatty liver
Gallbladder sludge
Diverticulosis
KACIE suspected-has not had sleep study yet
Gastric ulcers.
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
Anxiety.
Colon cancer/resection January 2023/chemotherapy.
Appendectomy. Ovarian cyst removal. Cervical fusion.
Plan
Acute decompensation likely related to viral infection induced asthma exacerbation
Supplemental oxygen as needed-92% on room air
Aspiration precautions
Incentive spirometry
Pulmicort and DuoNebs continue
Decadron 4 mg IV every 12 hours-changed to prednisone with slow taper
Tessalon Perles as needed
Mucolytic's
Influenza negative
Covid negative
Chest x-ray without clear infiltrate
Observe off antibiotics-follow temperature curve and leukocytosis
Cardiology evaluation with abnormal EKG-reviewed briefly with them
Echocardiogram 01/30/2025-EF 65-70%, no valvular abnormalities
Outpatient cardiology evaluation
Significant signs and symptoms of obstructive sleep apnea-also has a history of tracheomalacia on CT chest-no stridor at this time
Associations with untreated sleep apnea have been reviewed
Outpatient diagnostic polysomnogram is recommended-treatment options including CPAP, weight loss, positional therapy, oral appliances, surgical interventions will be reviewed
Patient may be a candidate for Zepbound
Outpatient follow-up with colorectal surgery/oncology
DVT prophylaxis-on Lovenox
GI prophylaxis-on pantoprazole
Nutrition
Early immobilization
Outpatient pulmonary/sleep disorders evaluation-allergy testing, eosinophil, IgE, PFTs, as well as sleep study-further evaluation of possible tracheomalacia noted on CT
Diagnostic data:
Chest x-ray 06/30/2022-NAD
Chest x-ray 07/02/2022-NAD
Chest x-ray 01/29/2025-low lung volumes, NAD
CT chest 07/02/2022-negative for pulmonary embolism,, bronchial wall thickening, bronchitis, inverted U configuration of the trachea in the upper chest suggesting tracheomalacia, fatty infiltration of liver
CT chest abdomen and pelvis 01/29/2025-no evidence for pulmonary embolism, mild subsegmental atelectasis, mild decreased bilateral lung volumes, mild cardiomegaly, diffuse fatty infiltration of the liver, gallbladder sludge, previous right
hemicolectomy, diverticulosis
Subjective Data
-
Date of Service:
Date of Service: January 31, 2025
Chief Complaint: Pulmonary Follow Up and Dyspnea Follow Up
Subjective:
Feels much better, less wheezy, no chest pain, chest tightness, minimal cough and some dyspnea on exertion but improving
Review of Systems
General: Other (Per HPI)
Objective Data
Data Reviewed
Vital Signs / I&O:
Vital Signs
Temp Pulse Resp BP Pulse Ox
97.4 F 65 16 106/68 92
01/31/25 07:35 01/31/25 07:37 01/31/25 07:37 01/31/25 07:35 01/31/25 08:11
Intake and Output
01/30/25 01/31/25 02/01/25
06:59 06:59 06:59
Intake Total 720 / 720
Balance 720 / 720
SaO2: 92
Nasal Cannula flow liters per minute: 2
Physical Exam
General: Respiratory Distress (n) and Comfortable
HEENT: Normocephalic, Anicteric and Moist Mucous Membranes
Cardiovascular: Regular Rhythm
Respiratory: Wheeze (Expiratory), Crackles (Rare basilar), Rhonchi (n), Non-Labored Respirations, Accessory Resp Muscle Use (n) and Stridor
GI: Soft, Non Distended and Non Tender
Neurology: Awake, Alert and No Motor Deficits
Skin: Warm, Good Color, Cyanosis (n) and Jaundice
Labs/Micro/Reports
Lab Data
01/31/25 07:04
01/31/25 07:04
Microbiology
01/29/25 14:22 Nasal Swab Influenza Types A & B (PAULO) - Final
Negative for Influenza A & B, NAAT
Negative results must be combined with clinical observations
and patient history.
Nucleic Acid Amplification test (NAAT)performed on the
[employer] platform.
[2025-01-31 12:28] LABS: Glucose - Point of Care 151 mg/dl (70-99)
[2025-01-31] MEDS: NOVOLOG FLEXPEN-MODERATE RESISTANCE 1 UNITS SC ×2 (12:36→17:35)
--- NOTE | 2025-01-31 15:01 | CM ---
CM reviewed chart, patient seen bedside.
No longer requiring O2.
Likely d.c tomorrow.
Will continue to follow for all needs.
Plan; home no needs.
--- NOTE | 2025-01-31 15:36 | PTOTSP ---
Patient stable on RA >92% throughout mobility in hallway. no need for AD and good insight into safety.
Does not demonstrate need for skilled therapy at this time. Will discharge. If needs change, please re-consult.
[2025-01-31] MEDS: ZOFRAN 4 MG PO (16:26)
[2025-01-31 16:59] LABS: Glucose - Point of Care 193 mg/dl (70-99)
[2025-01-31] MEDS: LOVENOX 40 MG SC (17:35)
[2025-01-31 21:47] LABS: Glucose - Point of Care 205 mg/dl (70-99)
[2025-01-31] MEDS: CELEXA 10 MG PO (22:16)
[2025-01-31] MEDS: ULTRAM 25 MG PO (23:15)
[2025-02-01] MEDS: HYCODAN SYRUP 5 ML PO ×5 (00:18→21:34)
--- NOTE | 2025-02-01 01:11 | W.PN.UPDATE ---
Update Note
Progress Note Update
pt had coughing fit despite tesslon pearls and robitussin with codeine. One dose of hyocan syrup ordered. This helped much better. Will switch cough meds.
[2025-02-01 03:00] VITALS: BP 155/81
[2025-02-01] MEDS: TYLENOL 1000 MG PO ×3 (03:24→16:39)
[2025-02-01] MEDS: ROBITUSSIN 200 MG PO (03:24)
[2025-02-01] MEDS: ULTRAM 25 MG PO ×2 (05:49→19:45)
[2025-02-01 07:00] VITALS: BP 128/75
[2025-02-01 07:33] LABS: Hematocrit 40.3 % (37.0-47.0); Hemoglobin 12.8 g/dL (12.0-16.0); Mean Corp Hgb Conc. 31.8 g/dL (33.0-37.0); Mean Corpuscular Volume 97.3 fL (81.0-99.0); Nucleated Red Blood Cells % 0 %; Platelet Count 298 10^3/uL (130-400); Red Cell Dist. Width 12.8 % (11.5-14.5)
[2025-02-01 07:34] LABS: Glucose - Point of Care 107 mg/dl (70-99)
[2025-02-01] MEDS: PULMICORT 0.5 MG INH ×2 (07:36→19:40)
[2025-02-01] MEDS: DUONEB 3 ML INH ×4 (07:36→19:40)
[2025-02-01] MEDS: NOVOLOG FLEXPEN-MODERATE RESISTANCE SC ×2 (07:37→17:41)
[2025-02-01 07:58] LABS: ALT (SGPT) 44 U/L (0-35); AST (SGOT) 32 U/L (14-36); Albumin 3.9 g/dl (3.5-5.0); Alkaline Phosphatase 77 U/L (38-126); Blood Urea Nitrogen 19 mg/dl (7-17); Calcium 9.2 mg/dl (8.4-10.2); Carbon Dioxide 30 mmol/L (22-30); Chloride 101 mmol/L (98-107); Estimated Creatinine Clearance 99 ml/min; Glucose 111 mg/dl (70-99); Potassium 4.3 mmol/L (3.5-5.1); Sodium 135 mmol/L (135-145); Total Protein 6.8 g/dl (6.3-8.2); eGFR > 60.00
--- NOTE | 2025-02-01 09:27 | W.PN.PUL.V3 ---
Today's Communication / Plan
-
Prednisone.
Increase activity.
Antitussives.
Outpatient pulmonary/sleep disorders follow-up
Assessment
-
59-year-old mild previous smoking female with a history of underlying asthma, allergies, peptic ulcer disease, tracheal [place], depression, chronic back pain last admitted with asthma exacerbation in 2022 admitted with coughing and wheezing for
the past 2 weeks as well as recent plane travel to [place] unresponsive to urgent care prescribed steroids and antibiotics as well as albuterol noted to have asthma exacerbation-pulmonary consulted for asthma/shortness of breath 01/30/2025
Asthma-moderate persistent with acute exacerbation
Abnormal EKG-anterolateral T wave abnormalities
Leukocytosis
Mild transaminitis
Hyperglycemia-A1c 6.1
Conditions present prior to admission:
Asthma-mild to moderate persistent-does not follow with pulmonary
Former [id number]-7-[id number]-year quit 2020
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
Morbid obesity-BMI 43
Fatty liver
Gallbladder sludge
Diverticulosis
KACIE suspected-has not had sleep study yet
Gastric ulcers.
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
Anxiety.
Colon cancer/resection January 2023/chemotherapy.
Appendectomy. Ovarian cyst removal. Cervical fusion.
Plan
Acute decompensation likely related to viral infection induced asthma exacerbation
Respiratory status was improving-now has significant coughing paroxysms
Supplemental oxygen as needed-92% on room air
Aspiration precautions
Incentive spirometry
Pulmicort and DuoNebs continue.
Prednisone with slow taper
Tessalon Perles as needed.
Antitussives.
Consider lidocaine neb if severe, with subsequent aspiration precautions
Mucolytic's
Influenza negative
Covid negative
Chest x-ray without clear infiltrate
Observe off antibiotics-follow temperature curve and leukocytosis
Cardiology evaluation with abnormal EKG-reviewed briefly with them
Echocardiogram 01/30/2025-EF 65-70%, no valvular abnormalities
Outpatient cardiology evaluation
Significant signs and symptoms of obstructive sleep apnea-also has a history of tracheomalacia on CT chest-no stridor at this time
Associations with untreated sleep apnea have been reviewed
Outpatient diagnostic polysomnogram is recommended-treatment options including CPAP, weight loss, positional therapy, oral appliances, surgical interventions will be reviewed
Patient may be a candidate for Zepbound
Outpatient follow-up with colorectal surgery/oncology
DVT prophylaxis-on Lovenox
GI prophylaxis-on pantoprazole
Nutrition
Early immobilization
Outpatient pulmonary/sleep disorders evaluation-allergy testing, eosinophil, IgE, PFTs, as well as sleep study-further evaluation of possible tracheomalacia noted on CT
Diagnostic data:
Chest x-ray 06/30/2022-NAD
Chest x-ray 07/02/2022-NAD
Chest x-ray 01/29/2025-low lung volumes, NAD
CT chest 07/02/2022-negative for pulmonary embolism,, bronchial wall thickening, bronchitis, inverted U configuration of the trachea in the upper chest suggesting tracheomalacia, fatty infiltration of liver
CT chest abdomen and pelvis 01/29/2025-no evidence for pulmonary embolism, mild subsegmental atelectasis, mild decreased bilateral lung volumes, mild cardiomegaly, diffuse fatty infiltration of the liver, gallbladder sludge, previous right
hemicolectomy, diverticulosis
Subjective Data
-
Date of Service:
Date of Service: February 01, 2025
Chief Complaint: Pulmonary Follow Up and Dyspnea Follow Up
Subjective:
. Had rough night with coughing paroxysms, ribs hurt from coughing, nonproductive, still with some wheezing and some dyspnea on exertion
Review of Systems
General: Other ( per HPI)
Objective Data
Data Reviewed
Vital Signs / I&O:
Vital Signs
Temp Pulse Resp BP Pulse Ox
97.6 F 102 20 128/75 94
02/01/25 07:00 02/01/25 07:39 02/01/25 07:39 02/01/25 07:00 02/01/25 07:39
Intake and Output
01/31/25 02/01/25 02/02/25
06:59 06:59 06:59
Intake Total 720 / 720 0 1920
Balance 720 / 720 0 / 1920
SaO2: 94
Nasal Cannula flow liters per minute: 2
Physical Exam
General: Respiratory Distress (n) and Comfortable
HEENT: Normocephalic, Anicteric and Moist Mucous Membranes
Cardiovascular: Regular Rhythm
Respiratory: Wheeze (Expiratory), Crackles (Rare basilar), Rhonchi (n), Non-Labored Respirations, Accessory Resp Muscle Use (n) and Stridor
GI: Soft, Non Distended and Non Tender
Neurology: Awake, Alert and No Motor Deficits
Skin: Warm, Good Color, Cyanosis (n) and Jaundice
Labs/Micro/Reports
Lab Data
02/01/25 06:22
02/01/25 06:22
Microbiology
01/29/25 14:22 Nasal Swab Influenza Types A & B (PAULO) - Final
Negative for Influenza A & B, NAAT
Negative results must be combined with clinical observations
and patient history.
Nucleic Acid Amplification test (NAAT)performed on the
[employer] platform.
[2025-02-01] MEDS: MIRALAX 17 GRAMS PO (10:26)
[2025-02-01] MEDS: TESSALON PERLES 200 MG PO ×3 (10:27→21:21)
[2025-02-01] MEDS: DELTASONE 40 MG PO (10:27)
[2025-02-01] MEDS: ZOFRAN 4 MG PO ×2 (10:38→18:44)
[2025-02-01 11:26] VITALS: BP 143/68
--- NOTE | 2025-02-01 11:33 | W.PN.HOSP.TC ---
Today's Communication/Plan
-
will dc if she feels better
Assessment / Plan
Assessment / Plan
Physical Exam
General: Conversant; No Pain, Fever or Chills. Not in distress
HEENT: Normocephalic, Anicteric, Moist mucous membranes, PERRLA, [place] Conjunctivae and No Ptosis
Respiratory: less wheezes/ rales.
Cardiac: S1/S2 and Regular Rhythm; No Murmur, Rub, Gallop or Peripheral Edema
GI: Soft, Non Tender, Non Distended, Normal Bowel Sounds.
Genito-urinary: No Matos
Musculoskeletal: No Clubbing, No Cyanosis and No Edema
Skin: Warm and Dry; No Rash
Neuro: AO x 3, No Motor Deficits, Nonfocal/grossly intact, Cranial Nerves Intact and No Sensory Deficits; No Slurred Speech, Facial Droop, Tremors or Sedated
Psych: Calm
A/P
#Asthma exacerbation likely triggered by viral URI
She is feeling better, less cough, would like to continue with Tessalon and Robitussin/codeine as needed
still on O2, will wean off
-DuoNeb every 6 hours
- S/p dexamethasone 4 mg every 12 hours, will change to oral prednisone
-Chest x-ray does not appear to show any abnormalities
-D-dimer elevated 0.6
-CT chest showed atelectasis/ scarring
f/w pulmonary recommendations
# History of tracheomalacia
tries to sit up and avoid flat position
# hx of colon cancer status post right hemicolectomy, chemotherapy, currently not on medication and in remission. She has abdominal discomfort consistent with persistent cough. Give Tylenol. Give cough medicine. CAT scan of the abdomen pelvis
did not show acute findings. Patient was given a copy of her CAT scan study.
# Acute hypoxic respiratory insufficiency
SaO2 89- 90 % on RA
Will wean off O2 treatment
# Abnormal EKG
No chest pain
Positive SOB/ tightness but with asthma attack
negative troponin
Echo of the heart showed left ventricular ejection fraction 65 to 70%, no regional wall motion abnormality, normal right ventricular size and function, no significant valvular disease, no pericardial effusion. Discussed with bowling ball grader and marker,
recommended outpatient cardiac stress test. Patient was made aware and verbalized understanding
Appreciate cardiology help
#Transaminitis likely due to hepatic steatosis with HGB A1C 6.1 c/w metabolic syndrome. BMI 41 / obesity
Weight loss is essential, she is aware
Insulin sign scale, discussed with patient regarding her weight and prediabetic status. She is in process to talk with her primary regarding weight loss medications
# Constipation, will add MiraLAX
#History of chronic back pain
#History of peptic ulcer
#Depression
#Obesity secondary to excess calories
Full code
DVT prophylaxis�heparin
Regular diet
Total time spent to see the patient, examine the patient, review data and lab result, discuss treatment plan with patient, consultants, nursing staff around 55 minutes
Anticipated Discharge: Within 24 hours
Subjective/Interval History
-
Date of Service: February 01, 2025
She is unsure to go home because she had coughing fit at night and made her feel in distress
Objective Data
-
Labs:
Laboratory Results
02/01/25
06:22
WBC 16.0 H
Hgb 12.8
Hct 40.3
Plt Count 298
Sodium 135
Potassium 4.3
Chloride 101
Carbon Dioxide 30
BUN 19 H
Creatinine 0.7
Glucose 111 H
Calcium 9.2
Total Bilirubin 0.6
AST 32
ALT 44 H
Alkaline Phosphatase 77
Vital Signs:
Vital Signs
Temp Pulse Resp BP Pulse Ox
98.7 F 110 17 143/68 98
02/01/25 11:26 02/01/25 11:26 02/01/25 11:26 02/01/25 11:26 02/01/25 11:26
I&O
01/31/25 02/01/25 02/02/25
06:59 06:59 06:59
Intake Total 720 / 720 1919
Balance 720 / 720 1919
--- NOTE | 2025-02-01 12:11 | CM ---
Patient seen at bedside in [facility]. Patient for discharge home pending physician assessment per patient. CM will continue to follow for discharge planning needs.
Plan; home with no needs.
[2025-02-01 12:13] LABS: Glucose - Point of Care 153 mg/dl (70-99)
[2025-02-01] MEDS: NOVOLOG FLEXPEN-MODERATE RESISTANCE 1 UNITS SC (14:07)
[2025-02-01 15:00] VITALS: BP 118/53
[2025-02-01 17:03] LABS: Glucose - Point of Care 146 mg/dl (70-99)
[2025-02-01] MEDS: LOVENOX 40 MG SC (18:43)
[2025-02-01] MEDS: CELEXA 10 MG PO (21:20)
[2025-02-01 21:43] LABS: Glucose - Point of Care 127 mg/dl (70-99)
[2025-02-01 23:08] VITALS: BP 130/74
[2025-02-02] MEDS: HYCODAN SYRUP 5 ML PO ×4 (01:20→19:52)
[2025-02-02] MEDS: ROBITUSSIN 200 MG PO ×4 (01:20→21:39)
[2025-02-02] MEDS: TYLENOL 1000 MG PO (03:50)
[2025-02-02 07:00] VITALS: BP 165/89
[2025-02-02] MEDS: DUONEB 3 ML INH ×5 (07:35→23:03)
[2025-02-02] MEDS: PULMICORT 0.5 MG INH ×2 (07:35→19:40)
[2025-02-02 07:44] LABS: Glucose - Point of Care 93 mg/dl (70-99)
[2025-02-02] MEDS: NOVOLOG FLEXPEN-MODERATE RESISTANCE SC ×3 (07:56→17:18)
[2025-02-02] MEDS: DELTASONE 40 MG PO (08:23)
[2025-02-02] MEDS: TESSALON PERLES 200 MG PO ×3 (08:23→21:38)
[2025-02-02] MEDS: MIRALAX 17 GRAMS PO (08:23)
[2025-02-02] MEDS: SOLU-MEDROL PF 40 MG IV ×2 (09:28→15:35)
--- NOTE | 2025-02-02 10:32 | CM ---
CM reviewed chart, reviewed with Nurse, patient on IV steroids.
No needs upon d/c
Care ongoing, will continue to follow.
Plan; home no needs
--- NOTE | 2025-02-02 10:58 | W.PN.HOSP.TC ---
Today's Communication/Plan
-
IV steroid
add PPI
Assessment / Plan
Assessment / Plan
Physical Exam
General: Conversant; No Pain, Fever or Chills. Not in distress
HEENT: Normocephalic, Anicteric, Moist mucous membranes, PERRLA, [place] Conjunctivae and No Ptosis
Respiratory: Positive rhonchi bilaterally.
Cardiac: S1/S2 and Regular Rhythm; No Murmur, Rub, Gallop or Peripheral Edema
GI: Soft, Non Tender, Non Distended, Normal Bowel Sounds.
Genito-urinary: No Matos
Musculoskeletal: No Clubbing, No Cyanosis and No Edema
Skin: Warm and Dry; No Rash
Neuro: AO x 3, No Motor Deficits, Nonfocal/grossly intact, Cranial Nerves Intact and No Sensory Deficits; No Slurred Speech, Facial Droop, Tremors or Sedated
Psych: Calm
A/P
#Asthma exacerbation likely triggered by viral URI
She is feeling the same as yesterday, increasing cough despite cough medications. We will stop prednisone and placed her back on IV methylprednisolone. Add PPI.
Continue with the breathing treatments
-DuoNeb every 6 hours
-CT chest showed atelectasis/ scarring
f/w pulmonary recommendations discussed with pulmonary, appreciate help,
# History of tracheomalacia
tries to sit up and avoid flat position
# hx of colon cancer status post right hemicolectomy, chemotherapy, currently not on medication and in remission. She has abdominal discomfort consistent with persistent cough. Given Tylenol. Give cough medicine. CAT scan of the abdomen pelvis
did not show acute findings. Patient was given a copy of her CAT scan study.
# Acute hypoxic respiratory insufficiency
SaO2 89- 90 % on RA
Resolved
# Abnormal EKG
No chest pain
Positive SOB/ tightness but with asthma attack
negative troponin
Echo of the heart showed left ventricular ejection fraction 65 to 70%, no regional wall motion abnormality, normal right ventricular size and function, no significant valvular disease, no pericardial effusion. Discussed with door clamper,
recommended outpatient cardiac stress test. Patient was made aware and verbalized understanding
Appreciate cardiology help
#Transaminitis likely due to hepatic steatosis with HGB A1C 6.1 c/w metabolic syndrome. BMI 41 / obesity
Weight loss is essential, she is aware
Insulin sign scale, discussed with patient regarding her weight and prediabetic status. She is in process to talk with her primary regarding weight loss medications
# Constipation, will add MiraLAX
#History of chronic back pain
#History of peptic ulcer
#Depression
#Obesity secondary to excess calories
Full code
DVT prophylaxis�heparin
Regular diet
Total time spent to see the patient, examine the patient, review data and lab result, discuss treatment plan with patient, consultants, nursing staff around 55 minutes
Anticipated Discharge: 24 - 48 hours
Subjective/Interval History
-
Date of Service: February 02, 2025
She is coughing with no improvement, can not sleep well
Objective Data
-
Vital Signs:
Vital Signs
Temp Pulse Resp BP Pulse Ox
97.7 F 61 16 165/89 94
02/02/25 07:00 02/02/25 07:36 02/02/25 07:36 02/02/25 07:00 02/02/25 08:40
I&O
02/01/25 02/02/25 02/03/25
06:59 06:59 06:59
Intake Total 1919 480 / 480
Balance 1919 480 / 480
[2025-02-02 12:08] LABS: Glucose - Point of Care 127 mg/dl (70-99)
[2025-02-02] MEDS: ULTRAM 25 MG PO ×2 (12:12→21:43)
[2025-02-02 15:00] VITALS: BP 145/78
--- NOTE | 2025-02-02 15:27 | W.PN.PUL3 ---
Today's Communication / Plan
-
- Agree with increased IV steroids, DuoNeb and budesonide
- Add azithromycin 500 mg daily for 3 days
- Follow-up chest x-ray to ensure no new consolidation
Assessment
-
59-year-old mild previous smoking female with a history of underlying asthma, allergies, peptic ulcer disease, tracheal [place], depression, chronic back pain last admitted with asthma exacerbation in 2022 admitted with coughing and wheezing for
the past 2 weeks as well as recent plane travel to [place] unresponsive to urgent care prescribed steroids and antibiotics as well as albuterol noted to have asthma exacerbation-pulmonary consulted for asthma/shortness of breath 01/30/2025
Asthma-moderate persistent with acute exacerbation
Abnormal EKG-anterolateral T wave abnormalities
Leukocytosis
Mild transaminitis
Hyperglycemia-A1c 6.1
Conditions present prior to admission:
Asthma-mild to moderate persistent-does not follow with pulmonary
Former esggiz-6-anzg-year quit 2020
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
Morbid obesity-BMI 43
Fatty liver
Gallbladder sludge
Diverticulosis
KACIE suspected-has not had sleep study yet
Gastric ulcers.
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
Anxiety.
Colon cancer/resection January 2023/chemotherapy.
Appendectomy. Ovarian cyst removal. Cervical fusion.
Plan
Continues to have bilateral wheezing and shortness of breath
Continue DuoNeb 4 times daily scheduled, budesonide nebulized twice daily, agree with resumption of IV steroid, Solu-Medrol 40 mg Q8
Add azithromycin 500 mg for 3 days for tracheobronchitis and anti-inflammatory properties
Repeat chest x-ray to ensure no new consolidation
Influenza negative
Covid negative
Chest x-ray without clear infiltrate
Echocardiogram 01/30/2025-EF 65-70%, no valvular abnormalities
Outpatient cardiology evaluation
Significant signs and symptoms of obstructive sleep apnea-also has a history of tracheomalacia on CT chest-no stridor at this time
Associations with untreated sleep apnea have been reviewed
Outpatient diagnostic polysomnogram is recommended-treatment options including CPAP, weight loss, positional therapy, oral appliances, surgical interventions will be reviewed
Patient may be a candidate for Zepbound
Outpatient follow-up with colorectal surgery/oncology
DVT prophylaxis-on Lovenox
GI prophylaxis-on pantoprazole
Nutrition
Early immobilization
Outpatient pulmonary/sleep disorders evaluation-allergy testing, eosinophil, IgE, PFTs, as well as sleep study-further evaluation of possible tracheomalacia noted on CT
Diagnostic data:
Chest x-ray 06/30/2022-NAD
Chest x-ray 07/02/2022-NAD
Chest x-ray 01/29/2025-low lung volumes, NAD
CT chest 07/02/2022-negative for pulmonary embolism,, bronchial wall thickening, bronchitis, inverted U configuration of the trachea in the upper chest suggesting tracheomalacia, fatty infiltration of liver
CT chest abdomen and pelvis 01/29/2025-no evidence for pulmonary embolism, mild subsegmental atelectasis, mild decreased bilateral lung volumes, mild cardiomegaly, diffuse fatty infiltration of the liver, gallbladder sludge, previous right
hemicolectomy, diverticulosis
Total time spent on this consultation/encounter __35__ minutes which includes review of history, physical exam, medications, laboratory data, personal review of imaging, extensive review of outpatient records, discussion with care team and
respiratory therapy.
Subjective Data
-
Date of Service:
Date of Service: February 02, 2025
Chief Complaint: Pulmonary Follow Up and Dyspnea Follow Up
Subjective:
Comfortably lying in bed, still reports shortness of breath with activity
Review of Systems
Genitourinary: Other (No new symptoms reported)
Objective Data
Data Reviewed
Vital Signs / I&O / Oxygen:
Vital Signs
Temp Pulse Resp BP Pulse Ox
97.7 F 64 16 165/89 95
10/18/25 07:00 02/02/25 14:46 02/02/25 14:46 02/02/25 07:00 02/02/25 14:46
Intake and Output
02/01/25 02/02/25 02/03/25
06:59 06:59 06:59
Intake Total 1919 480 / 480
Balance 1919 480 / 480
SaO2 95
Nasal Cannula flow liters per 2
minute
Physical Exam
General: Respiratory Distress (n) and Comfortable
HEENT: Normocephalic, Anicteric and Moist Mucous Membranes
Cardiovascular: Regular Rhythm
Respiratory: Wheeze (Bilateral expiratory wheezing), Crackles (Rare basilar), Non-Labored Respirations and Stridor (none)
GI: Soft, Non Distended and Non Tender
Neurology: Awake, Alert and No Motor Deficits
Skin: Warm, Good Color, Cyanosis (n) and Jaundice
Labs/Micro/Reports
Lab Data
02/01/25 06:22
02/01/25 06:22
[2025-02-02] MEDS: ZITHROMAX 500 MG PO (15:34)
[2025-02-02 16:56] LABS: Glucose - Point of Care 137 mg/dl (70-99)
[2025-02-02] MEDS: LOVENOX 40 MG SC (17:18)
[2025-02-02] MEDS: CELEXA 10 MG PO (21:37)
[2025-02-02 22:55] LABS: Glucose - Point of Care 136 mg/dl (70-99)
[2025-02-02 23:25] VITALS: BP 144/73
[2025-02-03] MEDS: SOLU-MEDROL PF 40 MG IV ×2 (00:39→08:52)
[2025-02-03] MEDS: FLUSH (NSS) 1 FLUSH IV (00:40)
[2025-02-03] MEDS: HYCODAN SYRUP 5 ML PO ×5 (01:47→22:21)
[2025-02-03] MEDS: DESYREL 50 MG PO (01:51)
[2025-02-03] MEDS: DUONEB 3 ML INH ×3 (03:11→11:17)
[2025-02-03 07:30] VITALS: BP 129/71
[2025-02-03] MEDS: PULMICORT 0.5 MG INH (07:32)
[2025-02-03 07:33] LABS: Glucose - Point of Care 190 mg/dl (70-99)
[2025-02-03] MEDS: PROTONIX 40 MG PO (08:52)
[2025-02-03] MEDS: NOVOLOG FLEXPEN-MODERATE RESISTANCE 1 UNITS SC ×2 (08:52→16:58)
[2025-02-03] MEDS: MIRALAX 17 GRAMS PO (08:52)
[2025-02-03] MEDS: ZITHROMAX 500 MG PO (08:52)
[2025-02-03] MEDS: ULTRAM 25 MG PO ×2 (08:53→18:34)
[2025-02-03] MEDS: ROBITUSSIN 200 MG PO ×4 (08:53→22:40)
[2025-02-03] MEDS: TESSALON PERLES 200 MG PO ×3 (08:53→21:28)
--- NOTE | 2025-02-03 09:07 | W.PN.HOSP.TC ---
Addendum entered and electronically signed by Greg Walter MD 02/03/25 13:36:
Addendum
Pulmonary doctor discussed with patient and her friend(patient requested friend to be involved)
Images were reviewed with pulmonary doctor. Patient likely has excessive dynamic airway collapse (EDAC) more than tracheomalacia. Will do BiPAP trial tonight. Highly recommend sleep study and weight loss. Patient and her friend verbalized
understanding.
Cut back on steroid, start maintenance inhalation.
End
Original Note:
Today's Communication/Plan
-
CBC & BMP in AM
c/w IV steroid
Assessment / Plan
Assessment / Plan
Physical Exam
General: Conversant; No Pain, Fever or Chills. Not in distress
HEENT: Normocephalic, Anicteric, Moist mucous membranes, PERRLA, [place] Conjunctivae and No Ptosis
Respiratory: Positive rhonchi bilaterally.
Cardiac: S1/S2 and Regular Rhythm; No Murmur, Rub, Gallop or Peripheral Edema
GI: Soft, Non Tender, Non Distended, Normal Bowel Sounds.
Genito-urinary: No Matos
Musculoskeletal: No Clubbing, No Cyanosis and No Edema
Skin: Warm and Dry; No Rash
Neuro: AO x 3, No Motor Deficits, Nonfocal/grossly intact, Cranial Nerves Intact and No Sensory Deficits; No Slurred Speech, Facial Droop, Tremors or Sedated
Psych: Calm
A/P
#Asthma exacerbation likely triggered by viral URI
She is feeling the same as yesterday, increasing cough despite cough medications. Stopped prednisone and placed her back on IV methylprednisolone. Added PPI.
3 days course of Zithromax
Continue with the breathing treatments
-DuoNeb every 6 hours
-CT chest showed atelectasis/ scarring
f/w pulmonary recommendations discussed with pulmonary, appreciate help,
# History of tracheomalacia
tries to sit up and avoid flat position
# hx of colon cancer status post right hemicolectomy, chemotherapy, currently not on medication and in remission. She has abdominal discomfort consistent with persistent cough. Given Tylenol. Give cough medicine. CAT scan of the abdomen pelvis
did not show acute findings. Patient was given a copy of her CAT scan study.
# Acute hypoxic respiratory insufficiency
SaO2 89- 90 % on RA
Resolved
# Abnormal EKG
No chest pain
Positive SOB/ tightness but with asthma attack
negative troponin
Echo of the heart showed left ventricular ejection fraction 65 to 70%, no regional wall motion abnormality, normal right ventricular size and function, no significant valvular disease, no pericardial effusion. Discussed with director of compensation,
recommended outpatient cardiac stress test. Patient was made aware and verbalized understanding
Appreciate cardiology help
#Transaminitis likely due to hepatic steatosis with HGB A1C 6.1 c/w metabolic syndrome. BMI 41 / obesity
Weight loss is essential, she is aware
Insulin sign scale and she is not requiring insulin most times, discussed with patient regarding her weight and prediabetic status. She is in process to talk with her primary regarding weight loss medications
# Constipation, added MiraLAX
# Leukocytosis, afebrile, likely reaction to steroid
#History of chronic back pain
#History of peptic ulcer
#Depression
#Obesity secondary to excess calories
Full code
DVT prophylaxis�heparin
Regular diet
Total time spent to see the patient, examine the patient, review data and lab result, discuss treatment plan with patient, consultants, nursing staff around 55 minutes
Anticipated Discharge: 24 - 48 hours
Subjective/Interval History
-
Date of Service: February 03, 2025
No chest pain
Better today
Coughing at times
Objective Data
-
Vital Signs:
Vital Signs
Temp Pulse Resp BP Pulse Ox
97.5 F 82 18 144/73 95
02/02/25 23:25 02/03/25 07:35 02/03/25 07:35 02/02/25 23:25 02/03/25 07:35
I&O
02/02/25 02/03/25 02/04/25
06:59 06:59 06:59
Intake Total 480 / 480 720 / 720 480 / 480
Balance 480 / 480 720 / 720 480 / 480
[2025-02-03 11:44] LABS: Glucose - Point of Care 213 mg/dl (70-99)
[2025-02-03] MEDS: NOVOLOG FLEXPEN-MODERATE RESISTANCE 3 UNITS SC (12:28)
[2025-02-03] MEDS: SYMBICORT 160/4.5 MCG INHALER INH (13:45)
--- NOTE | 2025-02-03 14:02 | W.PN.PUL3 ---
Today's Communication / Plan
-
- Trial of BiPAP 03/23 nightly
- Transition to Symbicort 2 puffs twice a day, prednisone 40 mg daily
- Patient needs outpatient dynamic bronchoscopy, pulmonary function testing as well as sleep study
Assessment
-
59-year-old mild previous smoking female with a history of underlying asthma, allergies, peptic ulcer disease, tracheal [place], depression, chronic back pain last admitted with asthma exacerbation in 2022 admitted with coughing and wheezing for
the past 2 weeks as well as recent plane travel to [place] unresponsive to urgent care prescribed steroids and antibiotics as well as albuterol noted to have asthma exacerbation-pulmonary consulted for asthma/shortness of breath 01/30/2025
Asthma-moderate persistent with acute exacerbation
Suspected Sleep disordered breathing
Suspect EDAC (excessive dynamic airway collapse), suggested by excessive posterior wall collapse of trachea on CT scan
Morbid obesity
Abnormal EKG-anterolateral T wave abnormalities
Leukocytosis
Mild transaminitis
Hyperglycemia-A1c 6.1
Conditions present prior to admission:
Asthma-mild to moderate persistent-does not follow with pulmonary
Former [id number]-year quit 2020
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
Morbid obesity-BMI 43
Fatty liver
Gallbladder sludge
Diverticulosis
KACIE suspected-has not had sleep study yet
Gastric ulcers.
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
Anxiety.
Colon cancer/resection January 2023/chemotherapy.
Appendectomy. Ovarian cyst removal. Cervical fusion.
Plan
Improving bilateral wheezing and shortness of breath, gradual improvement
Switch to Symbicort 2 puffs twice a day, transition to p.o. prednisone
Continue azithromycin 500 mg for 3 days for tracheobronchitis and anti-inflammatory properties
Repeat chest x-ray without any consolidation
Suspect some of her symptoms are related to excessive dynamic airway collapse, EDAC noted on imaging. She has excessive bulging of posterior tracheal wall on CT scan noted in 2022 as well as now in 2024. Tracheal rings appeared normal and no
anterior collapse, less likely tracheomalacia.
Patient needs a sleep study ideally and a positive pressure support when sleeping.
Needs dynamic bronchoscopy as outpatient for further evaluation
In view of persistent symptoms, trial of BiPAP starting tonight 03/23
Influenza negative
Covid negative
Chest x-ray without clear infiltrate
Echocardiogram 01/30/2025-EF 65-70%, no valvular abnormalities
Outpatient cardiology evaluation
Significant signs and symptoms of obstructive sleep apnea
Associations with untreated sleep apnea have been reviewed
Outpatient diagnostic polysomnogram is recommended-treatment options including CPAP, weight loss, positional therapy, oral appliances, surgical interventions will be reviewed
Patient may be a candidate for Zepbound
Outpatient follow-up with colorectal surgery/oncology
DVT prophylaxis-on Lovenox
GI prophylaxis-on pantoprazole
Nutrition
Early immobilization
Outpatient pulmonary/sleep disorders evaluation-allergy testing, eosinophil, IgE, PFTs, as well as sleep study-further evaluation of possible tracheomalacia noted on CT
Diagnostic data:
Chest x-ray 06/30/2022-NAD
Chest x-ray 07/02/2022-NAD
Chest x-ray 01/29/2025-low lung volumes, NAD
CT chest 07/02/2022-negative for pulmonary embolism,, bronchial wall thickening, bronchitis, inverted U configuration of the trachea in the upper chest suggesting tracheomalacia, fatty infiltration of liver
CT chest abdomen and pelvis 01/29/2025-no evidence for pulmonary embolism, mild subsegmental atelectasis, mild decreased bilateral lung volumes, mild cardiomegaly, diffuse fatty infiltration of the liver, gallbladder sludge, previous right
hemicolectomy, diverticulosis
Total time spent on this consultation/encounter __38__ minutes which includes review of history, physical exam, medications, laboratory data, personal review of imaging, extensive review of outpatient records, discussion with care team and
respiratory therapy.
Subjective Data
-
Date of Service:
Date of Service: February 03, 2025
Chief Complaint: Pulmonary Follow Up and Dyspnea Follow Up
Subjective:
Comfortably sitting in bed in no acute distress. Marginally improved. Continues to have difficulty sleeping.
Review of Systems
Genitourinary: Other (All 14 systems reviewed and negative except as stated above in the history of present illness.)
Objective Data
Data Reviewed
Vital Signs / I&O / Oxygen:
Vital Signs
Temp Pulse Resp BP Pulse Ox
98.0 F 82 18 129/71 96
02/03/25 07:30 02/03/25 11:20 02/03/25 11:20 02/03/25 07:30 02/03/25 11:20
Intake and Output
02/02/25 02/03/25 02/04/25
06:59 06:59 06:59
Intake Total 480 / 480 720 / 720 480 / 480
Balance 480 / 480 720 / 720 480 / 480
SaO2 96
Nasal Cannula flow liters per 2
minute
Physical Exam
General: Comfortable
HEENT: Normocephalic, Anicteric and Moist Mucous Membranes
Cardiovascular: Regular Rhythm
Respiratory: Wheeze (Bilateral expiratory wheezing quite improved), Crackles (Rare basilar), Non-Labored Respirations and Stridor (none)
GI: Soft, Non Distended and Non Tender
Neurology: Awake, Alert and No Motor Deficits
Skin: Warm, Good Color, Cyanosis (n) and Jaundice
Labs/Micro/Reports
Lab Data
02/01/25 06:22
02/01/25 06:22
[2025-02-03 15:30] VITALS: BP 144/71
[2025-02-03 16:34] LABS: Glucose - Point of Care 151 mg/dl (70-99)
[2025-02-03] MEDS: DELTASONE 40 MG PO (16:58)
[2025-02-03] MEDS: LOVENOX 40 MG SC (17:01)
[2025-02-03] MEDS: SYMBICORT 160/4.5 MCG INHALER 2 PUFF INH (19:38)
[2025-02-03 21:06] LABS: Glucose - Point of Care 186 mg/dl (70-99)
[2025-02-03] MEDS: CELEXA 10 MG PO (21:28)
[2025-02-03 22:36] VITALS: BP 143/85
[2025-02-03 22:43] VITALS: PULSE 2; PULSE 68
[2025-02-04] MEDS: ULTRAM 25 MG PO ×2 (00:43→21:05)
[2025-02-04 01:57] VITALS: PULSE 2
[2025-02-04] MEDS: HYCODAN SYRUP 5 ML PO ×5 (02:33→21:00)
[2025-02-04] MEDS: ROBITUSSIN 200 MG PO ×5 (02:40→21:00)
[2025-02-04 06:45] LABS: Venous Blood Gas B.E. 7.2 mmol/L (-4 to +4); Venous Blood Gas O2 Sat % 68.0 %
[2025-02-04 06:53] LABS: Hematocrit 41.8 % (37.0-47.0); Hemoglobin 13.4 g/dL (12.0-16.0); Mean Corp Hgb Conc. 32.1 g/dL (33.0-37.0); Mean Corpuscular Volume 97.7 fL (81.0-99.0); Platelet Count 334 10^3/uL (130-400); Red Cell Dist. Width 12.8 % (11.5-14.5)
[2025-02-04 07:16] LABS: Blood Urea Nitrogen 21 mg/dl (7-17); Calcium 9.6 mg/dl (8.4-10.2); Carbon Dioxide 31 mmol/L (22-30); Chloride 103 mmol/L (98-107); Estimated Creatinine Clearance 99 ml/min; Glucose 133 mg/dl (70-99); Potassium 5.5 mmol/L (3.5-5.1); Sodium 135 mmol/L (135-145); eGFR > 60.00
[2025-02-04 07:30] VITALS: BP 121/71
[2025-02-04 07:42] LABS: Glucose - Point of Care 126 mg/dl (70-99)
[2025-02-04] MEDS: SYMBICORT 160/4.5 MCG INHALER 2 PUFF INH ×2 (07:47→19:23)
[2025-02-04] MEDS: NOVOLOG FLEXPEN-MODERATE RESISTANCE SC (08:04)
[2025-02-04] MEDS: TESSALON PERLES 200 MG PO ×3 (08:05→21:00)
[2025-02-04] MEDS: ZITHROMAX 500 MG PO (08:05)
[2025-02-04] MEDS: PROTONIX 40 MG PO (08:05)
[2025-02-04] MEDS: DELTASONE 40 MG PO (08:05)
[2025-02-04] MEDS: MIRALAX 17 GRAMS PO (08:05)
--- NOTE | 2025-02-04 09:25 | W.PN.PUL3 ---
Today's Communication / Plan
-
Doing well, stable on RA
Transitioned to PO prednisone, taper at discharge
BIPAP home set up, CM Consult paced
OP FU To be arranged, she agrees
Discharge planning otherwise per team
Assessment
-
59-year-old mild previous smoking female with a history of underlying asthma, allergies, peptic ulcer disease, tracheal [place], depression, chronic back pain last admitted with asthma exacerbation in 2022 admitted with coughing and wheezing for
the past 2 weeks as well as recent plane travel to [place] unresponsive to urgent care prescribed steroids and antibiotics as well as albuterol noted to have asthma exacerbation-pulmonary consulted for asthma/shortness of breath 01/30/2025
Asthma-moderate persistent with acute exacerbation
Suspected Sleep disordered breathing
Suspect EDAC (excessive dynamic airway collapse), suggested by excessive posterior wall collapse of trachea on CT scan
Morbid obesity
Abnormal EKG-anterolateral T wave abnormalities
Leukocytosis
Mild transaminitis
Hyperglycemia-A1c 6.1
Conditions present prior to admission:
Asthma-mild to moderate persistent-does not follow with pulmonary
Former [id number]-8-[id number]-year quit 2020
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
Morbid obesity-BMI 43
Fatty liver
Gallbladder sludge
Diverticulosis
KACIE suspected-has not had sleep study yet
Gastric ulcers.
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
Anxiety.
Colon cancer/resection January 2023/chemotherapy.
Appendectomy. Ovarian cyst removal. Cervical fusion.
Plan
Improving bilateral wheezing and shortness of breath, gradual improvement
Switch to Symbicort 2 puffs twice a day, transition to p.o. prednisone
Continue azithromycin 500 mg for 3 days for tracheobronchitis and anti-inflammatory properties
Repeat chest x-ray without any consolidation
Suspect some of her symptoms are related to excessive dynamic airway collapse, EDAC noted on imaging.
She has excessive bulging of posterior tracheal wall on CT scan noted in 2022 as well as now in 2024.
Tracheal rings appeared normal and no anterior collapse, less likely tracheomalacia.
Patient needs a sleep study ideally and a positive pressure support when sleeping.
Needs dynamic bronchoscopy as outpatient for further evaluation
In view of persistent symptoms, trial of BiPAP while inpt
Influenza negative
Covid negative
Chest x-ray without clear infiltrate
Echocardiogram 01/30/2025-EF 65-70%, no valvular abnormalities
Outpatient cardiology evaluation
Significant signs and symptoms of obstructive sleep apnea
Associations with untreated sleep apnea have been reviewed
Outpatient diagnostic polysomnogram is recommended-treatment options including CPAP, weight loss, positional therapy, oral appliances, surgical interventions will be reviewed
Patient may be a candidate for Zepbound
Outpatient follow-up with colorectal surgery/oncology
DVT prophylaxis-on Lovenox
GI prophylaxis-on pantoprazole
Nutrition
Early immobilization
Outpatient pulmonary/sleep disorders evaluation-allergy testing, eosinophil, IgE, PFTs, as well as sleep study-further evaluation of possible tracheomalacia noted on CT
Diagnostic data:
Chest x-ray 06/30/2022-NAD
Chest x-ray 07/02/2022-NAD
Chest x-ray 01/29/2025-low lung volumes, NAD
CT chest 07/02/2022-negative for pulmonary embolism,, bronchial wall thickening, bronchitis, inverted U configuration of the trachea in the upper chest suggesting tracheomalacia, fatty infiltration of liver
CT chest abdomen and pelvis 01/29/2025-no evidence for pulmonary embolism, mild subsegmental atelectasis, mild decreased bilateral lung volumes, mild cardiomegaly, diffuse fatty infiltration of the liver, gallbladder sludge, previous right
hemicolectomy, diverticulosis
Total time spent on this consultation/encounter __51__ minutes which includes review of history, physical exam, medications, laboratory data, personal review of imaging, extensive review of outpatient records, discussion with care team and
respiratory therapy.
Subjective Data
-
Date of Service:
Date of Service: February 04, 2025
Chief Complaint: Pulmonary Follow Up and Dyspnea Follow Up
Subjective:
No new complaints, stable on RA
Objective Data
Data Reviewed
Vital Signs / I&O / Oxygen:
Vital Signs
Temp Pulse Resp BP Pulse Ox
98.1 F 83 18 121/71 93
02/04/25 07:30 02/04/25 07:51 02/04/25 07:51 02/04/25 07:30 02/04/25 08:15
Intake and Output
02/03/25 02/04/25 02/05/25
06:59 06:59 06:59
Intake Total 720 / 720 1440 / 1440
Balance 720 / 720 1440 / 1440
SaO2 93
Nasal Cannula flow liters per 2
minute
Physical Exam
General: Comfortable
HEENT: Normocephalic, Anicteric and Moist Mucous Membranes
Cardiovascular: Regular Rhythm
Respiratory: Clear, Wheeze (mild, trace), Non-Labored Respirations and Stridor (none)
GI: Soft, Non Distended and Non Tender
Neurology: Awake, Alert, Oriented and No Motor Deficits
Skin: Warm, Good Color, Cyanosis (n) and Jaundice
Labs/Micro/Reports
Lab Data
02/04/25 06:29
02/04/25 06:28
[2025-02-04 11:46] LABS: Glucose - Point of Care 189 mg/dl (70-99)
[2025-02-04] MEDS: NOVOLOG FLEXPEN-MODERATE RESISTANCE 1 UNITS SC ×2 (12:00→17:01)
--- NOTE | 2025-02-04 13:36 | CM ---
patient seen at bedside
CM consult for BIPAP at home
called Jessenia from [facility] and faxed ([phone]) face sheet, H&P, blood gas
she states cannot be delivered until tomorrow
Jessenia will email CM order form & CM will have to fax this and progress note once completed
PLAN: home, BIPAP can be delivered tomorrow
patient will uber home
--- NOTE | 2025-02-04 15:16 | W.PN.HOSP.TC ---
Today's Communication/Plan
-
Assessment / Plan
Assessment / Plan
Physical Exam
General: Conversant; No Pain, Fever or Chills. Not in distress
HEENT: Normocephalic, Anicteric, Moist mucous membranes, PERRLA, [place] Conjunctivae and No Ptosis
Respiratory: Positive rhonchi bilaterally.
Cardiac: S1/S2 and Regular Rhythm; No Murmur, Rub, Gallop or Peripheral Edema
GI: Soft, Non Tender, Non Distended, Normal Bowel Sounds.
Genito-urinary: No Matos
Musculoskeletal: No Clubbing, No Cyanosis and No Edema
Skin: Warm and Dry; No Rash
Neuro: AO x 3, No Motor Deficits, Nonfocal/grossly intact, Cranial Nerves Intact and No Sensory Deficits; No Slurred Speech, Facial Droop, Tremors or Sedated
Psych: Calm
A/P
#Asthma exacerbation likely triggered by viral URI
She is feeling the same as yesterday, increasing cough despite cough medications. Stopped prednisone and placed her back on IV methylprednisolone. Added PPI.
3 days course of Zithromax
Continue with the breathing treatments
-DuoNeb every 6 hours
-CT chest showed atelectasis/ scarring
f/w pulmonary recommendations discussed with pulmonary, appreciate help,
# History of tracheomalacia
tries to sit up and avoid flat position
# hx of colon cancer status post right hemicolectomy, chemotherapy, currently not on medication and in remission. She has abdominal discomfort consistent with persistent cough. Given Tylenol. Give cough medicine. CAT scan of the abdomen pelvis
did not show acute findings. Patient was given a copy of her CAT scan study.
# Acute hypoxic respiratory insufficiency
SaO2 89- 90 % on RA
Resolved
# Abnormal EKG
No chest pain
Positive SOB/ tightness but with asthma attack
negative troponin
Echo of the heart showed left ventricular ejection fraction 65 to 70%, no regional wall motion abnormality, normal right ventricular size and function, no significant valvular disease, no pericardial effusion. Discussed with service cleaner,
recommended outpatient cardiac stress test. Patient was made aware and verbalized understanding
Appreciate cardiology help
#Transaminitis likely due to hepatic steatosis with HGB A1C 6.1 c/w metabolic syndrome. BMI 41 / obesity
Weight loss is essential, she is aware
Insulin sign scale and she is not requiring insulin most times, discussed with patient regarding her weight and prediabetic status. She is in process to talk with her primary regarding weight loss medications
# Constipation, added MiraLAX
# Leukocytosis, afebrile, likely reaction to steroid
#History of chronic back pain
#History of peptic ulcer
#Depression
#Obesity secondary to excess calories
Full code
DVT prophylaxis�heparin
Regular diet
Discussed with Pulmonary about setting up bipap as an outpatien. CM updated.
Anticipated Discharge: Within 24 hours
Subjective/Interval History
-
Date of Service: February 04, 2025
Seen and examined. No new complaints. No acute overnight events.
Objective Data
-
Labs:
Laboratory Results
02/04/25 02/04/25
06:28 06:29
WBC 18.7 H
Hgb 13.4
Hct 41.8
Plt Count 334
Sodium 135
Potassium 5.5 H
Chloride 103
Carbon Dioxide 31 H
BUN 21 H
Creatinine 0.7
Glucose 133 H
Calcium 9.6
Vital Signs:
Vital Signs
Temp Pulse Resp BP Pulse Ox
98.1 F 83 18 121/71 93
02/04/25 07:30 02/04/25 07:51 02/04/25 07:51 02/04/25 07:30 02/04/25 08:15
I&O
02/03/25 02/04/25 02/05/25
06:59 06:59 06:59
Intake Total 720 / 720 1440 / 1440
Balance 720 / 720 1440 / 1440
[2025-02-04 15:30] VITALS: BP 151/80
[2025-02-04 16:48] LABS: Glucose - Point of Care 164 mg/dl (70-99)
[2025-02-04] MEDS: LOVENOX 40 MG SC (17:01)
[2025-02-04] MEDS: CELEXA 10 MG PO (21:00)
[2025-02-04 21:10] LABS: Glucose - Point of Care 147 mg/dl (70-99)
[2025-02-04 23:13] VITALS: BP 135/80; PULSE 2; PULSE 78
[2025-02-05 07:00] VITALS: BP 153/77
[2025-02-05] MEDS: SYMBICORT 160/4.5 MCG INHALER 2 PUFF INH ×2 (07:44→19:51)
[2025-02-05 07:57] LABS: Glucose - Point of Care 84 mg/dl (70-99)
[2025-02-05] MEDS: NOVOLOG FLEXPEN-MODERATE RESISTANCE SC ×3 (08:09→17:12)
[2025-02-05] MEDS: MIRALAX 17 GRAMS PO (08:10)
[2025-02-05] MEDS: TESSALON PERLES 200 MG PO ×3 (08:10→21:14)
[2025-02-05] MEDS: DELTASONE 40 MG PO (08:10)
[2025-02-05] MEDS: PROTONIX 40 MG PO (08:10)
[2025-02-05] MEDS: HYCODAN SYRUP 5 ML PO ×4 (08:18→21:14)
[2025-02-05] MEDS: ROBITUSSIN 200 MG PO ×4 (08:18→21:14)
--- NOTE | 2025-02-05 09:37 | W.PN.PUL3 ---
Today's Communication / Plan
-
Doing well, remains stable on RA
No new complaints
Awaiting home DME set up by CM
Otherwise, discharge planning per team
We will arrange OP FU
We will sign off at this time while she is awaiting d/c, please call with questions
-----
Patient is a 68-year-old F with KACIE/OHS, asthma. They have had multiple ER and hospital readmissions with a chief complaint of shortness of breath and respiratory failure. The patient has a PaCO2 of 67 mmHg. Due to the patient's comorbidities as
noted above and hypoventilation, the patient is at risk for worsening chronic respiratory failure. I have considered bilevel, bilevel ST and bilevel VAPS therapy and they have all been ruled out due to the patient's worsening clinical condition.
The patient now requires a unique mode of ventilation not offered on less costly options. The patient requires a device that will not fail in the event of a power failure and is also portable for mobility within the home when needed. Due to the
patient's worsening condition, I am prescribing NIV therapy to decrease the chance of continued unexplained expensive medical encounters including physician office visits, emergency/urgent care treatment and hospital readmissions.
Assessment
-
59-year-old mild previous smoking female with a history of underlying asthma, allergies, peptic ulcer disease, tracheal [place], depression, chronic back pain last admitted with asthma exacerbation in 2022 admitted with coughing and wheezing for
the past 2 weeks as well as recent plane travel to [place] unresponsive to urgent care prescribed steroids and antibiotics as well as albuterol noted to have asthma exacerbation-pulmonary consulted for asthma/shortness of breath 01/30/2025
Asthma-moderate persistent with acute exacerbation
Suspected Sleep disordered breathing
Suspect EDAC (excessive dynamic airway collapse), suggested by excessive posterior wall collapse of trachea on CT scan
Morbid obesity
Abnormal EKG-anterolateral T wave abnormalities
Leukocytosis
Mild transaminitis
Hyperglycemia-A1c 6.1
Conditions present prior to admission:
Asthma-mild to moderate persistent-does not follow with pulmonary
Former xjndld-0-kjhy-year quit 2020
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
Morbid obesity-BMI 43
Fatty liver
Gallbladder sludge
Diverticulosis
KACIE suspected-has not had sleep study yet
Gastric ulcers.
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
Anxiety.
Colon cancer/resection January 2023/chemotherapy.
Appendectomy. Ovarian cyst removal. Cervical fusion.
Plan
Improving bilateral wheezing and shortness of breath, gradual improvement
Switch to Symbicort 2 puffs twice a day, transition to p.o. prednisone
Continue azithromycin 500 mg for 3 days for tracheobronchitis and anti-inflammatory properties
Repeat chest x-ray without any consolidation
Suspect some of her symptoms are related to excessive dynamic airway collapse, EDAC noted on imaging.
She has excessive bulging of posterior tracheal wall on CT scan noted in 2022 as well as now in 2024.
Tracheal rings appeared normal and no anterior collapse, less likely tracheomalacia.
Patient needs a sleep study ideally and a positive pressure support when sleeping.
Needs dynamic bronchoscopy as outpatient for further evaluation
In view of persistent symptoms, trial of BiPAP while inpt
Home set up in process
Influenza negative
Covid negative
Chest x-ray without clear infiltrate
Echocardiogram 01/30/2025-EF 65-70%, no valvular abnormalities
Outpatient cardiology evaluation
Significant signs and symptoms of obstructive sleep apnea
Associations with untreated sleep apnea have been reviewed
Outpatient diagnostic polysomnogram is recommended-treatment options including CPAP, weight loss, positional therapy, oral appliances, surgical interventions will be reviewed
Patient may be a candidate for Zepbound
Outpatient follow-up with colorectal surgery/oncology
DVT prophylaxis-on Lovenox
GI prophylaxis-on pantoprazole
Nutrition
Early immobilization
Outpatient pulmonary/sleep disorders evaluation-allergy testing, eosinophil, IgE, PFTs, as well as sleep study-further evaluation of possible tracheomalacia noted on CT
Diagnostic data:
Chest x-ray 06/30/2022-NAD
Chest x-ray 07/02/2022-NAD
Chest x-ray 01/29/2025-low lung volumes, NAD
CT chest 07/02/2022-negative for pulmonary embolism,, bronchial wall thickening, bronchitis, inverted U configuration of the trachea in the upper chest suggesting tracheomalacia, fatty infiltration of liver
CT chest abdomen and pelvis 01/29/2025-no evidence for pulmonary embolism, mild subsegmental atelectasis, mild decreased bilateral lung volumes, mild cardiomegaly, diffuse fatty infiltration of the liver, gallbladder sludge, previous right
hemicolectomy, diverticulosis
Total time spent on this consultation/encounter __45__ minutes which includes review of history, physical exam, medications, laboratory data, personal review of imaging, extensive review of outpatient records, discussion with care team and
respiratory therapy.
Subjective Data
-
Date of Service:
Date of Service: February 05, 2025
Chief Complaint: Pulmonary Follow Up and Dyspnea Follow Up
Subjective:
Doing well, no complaints
Stable on RA
Objective Data
Data Reviewed
Vital Signs / I&O / Oxygen:
Vital Signs
Temp Pulse Resp BP Pulse Ox
97.8 F 81 16 153/77 95
02/05/25 07:00 02/05/25 07:48 02/05/25 07:48 02/05/25 07:00 02/05/25 08:20
Intake and Output
02/04/25 02/05/25 02/06/25
06:59 06:59 06:59
Intake Total 1440 / 1440 1500 / 1500
Balance 1440 / 1440 1500 / 1500
SaO2 95
Nasal Cannula flow liters per 2
minute
Physical Exam
General: Comfortable
HEENT: Normocephalic, Anicteric and Moist Mucous Membranes
Cardiovascular: Regular Rhythm
Respiratory: Clear, Wheeze (mild, trace), Non-Labored Respirations and Stridor (none)
GI: Soft, Non Distended and Non Tender
Neurology: Awake, Alert, Oriented and No Motor Deficits
Skin: Warm, Good Color, Cyanosis (n) and Jaundice
Labs/Micro/Reports
Lab Data
02/04/25 06:29
02/04/25 06:28
[2025-02-05 11:44] VITALS: BP 171/97
[2025-02-05 12:05] LABS: Glucose - Point of Care 132 mg/dl (70-99)
--- NOTE | 2025-02-05 13:01 | CM ---
Addendum entered by Soraida Waller 02/05/25 14:27:
Script/clinicals faxed to [facility]- will have set up scheduled for tomorrow, 02/06- will need patient home prior to 2:00 p.m.
Original Note:
CM reviewed chart, script for BIPAP placed on chart for Pulm signature, will fax to [facility].
Will confirm with [facility] when delivery will be scheduled.
Patient stable for d/c pending BIPAP set up/delivery.
CM will continue to follow.
Plan; home with BIPAP through [facility] once confirmed
[2025-02-05 14:49] VITALS: BP 119/72
--- NOTE | 2025-02-05 15:08 | W.PN.HOSP.TC ---
Today's Communication/Plan
-
Assessment / Plan
Assessment / Plan
Physical Exam
General: Conversant; No Pain, Fever or Chills. Not in distress
HEENT: Normocephalic, Anicteric, Moist mucous membranes, PERRLA, [place] Conjunctivae and No Ptosis
Respiratory: Positive rhonchi bilaterally.
Cardiac: S1/S2 and Regular Rhythm; No Murmur, Rub, Gallop or Peripheral Edema
GI: Soft, Non Tender, Non Distended, Normal Bowel Sounds.
Genito-urinary: No Matos
Musculoskeletal: No Clubbing, No Cyanosis and No Edema
Skin: Warm and Dry; No Rash
Neuro: AO x 3, No Motor Deficits, Nonfocal/grossly intact, Cranial Nerves Intact and No Sensory Deficits; No Slurred Speech, Facial Droop, Tremors or Sedated
Psych: Calm
A/P
#Asthma exacerbation likely triggered by viral URI
She is feeling the same as yesterday, increasing cough despite cough medications. Stopped prednisone and placed her back on IV methylprednisolone. Added PPI.
3 days course of Zithromax
Continue with the breathing treatments
-DuoNeb every 6 hours
-CT chest showed atelectasis/ scarring
f/w pulmonary recommendations discussed with pulmonary, appreciate help,
# History of tracheomalacia
tries to sit up and avoid flat position
# hx of colon cancer status post right hemicolectomy, chemotherapy, currently not on medication and in remission. She has abdominal discomfort consistent with persistent cough. Given Tylenol. Give cough medicine. CAT scan of the abdomen pelvis
did not show acute findings. Patient was given a copy of her CAT scan study.
# Acute hypoxic respiratory insufficiency
SaO2 89- 90 % on RA
Resolved
# Abnormal EKG
No chest pain
Positive SOB/ tightness but with asthma attack
negative troponin
Echo of the heart showed left ventricular ejection fraction 65 to 70%, no regional wall motion abnormality, normal right ventricular size and function, no significant valvular disease, no pericardial effusion. Discussed with stenographic court reporter,
recommended outpatient cardiac stress test. Patient was made aware and verbalized understanding
Appreciate cardiology help
#Transaminitis likely due to hepatic steatosis with HGB A1C 6.1 c/w metabolic syndrome. BMI 41 / obesity
Weight loss is essential, she is aware
Insulin sign scale and she is not requiring insulin most times, discussed with patient regarding her weight and prediabetic status. She is in process to talk with her primary regarding weight loss medications
# Constipation, added MiraLAX
# Leukocytosis, afebrile, likely reaction to steroid
#History of chronic back pain
#History of peptic ulcer
#Depression
#Obesity secondary to excess calories
Full code
DVT prophylaxis�heparin
Regular diet
Discharge home. BiPAP to be set up tomorrow at home.
Anticipated Discharge: Within 24 hours
Subjective/Interval History
-
Date of Service: February 05, 2025
Seen and examined. No new complaints. No acute overnight events.
States that she wants to be discharged once BiPAP has been delivered to the house.
Per case management delivery tomorrow.
Objective Data
-
Vital Signs:
Vital Signs
Temp Pulse Resp BP Pulse Ox
98.1 F 70 18 119/72 95
02/05/25 14:49 02/05/25 14:49 02/05/25 14:49 02/05/25 14:49 02/05/25 14:49
I&O
02/04/25 02/05/25 02/06/25
06:59 06:59 06:59
Intake Total 1440 / 1440 1500 / 1500
Balance 1440 / 1440 1500 / 1500
[2025-02-05 16:56] LABS: Glucose - Point of Care 112 mg/dl (70-99)
[2025-02-05] MEDS: LOVENOX 40 MG SC (17:12)
[2025-02-05 21:12] LABS: Glucose - Point of Care 132 mg/dl (70-99)
[2025-02-05] MEDS: CELEXA 10 MG PO (21:14)
[2025-02-05] MEDS: ULTRAM 25 MG PO (22:42)
[2025-02-05] MEDS: DESYREL 50 MG PO (22:42)
[2025-02-05 22:46] VITALS: PULSE 2; PULSE 59
[2025-02-05 23:08] VITALS: BP 124/69
--- NOTE | 2025-02-06 02:32 | DOWNTIME ---
There was a [employer] Downtime on 02/06/2025 from 0100 to 02/06/2025 at 0215. Downtime documentation of patient's care, including medication administrations, has been reconciled in the electronic record per guidelines. Refer to the
patient's paper chart under the miscellaneous tab to see printed paper medication records and downtime forms.
[2025-02-06] MEDS: ROBITUSSIN 200 MG PO ×2 (02:34→07:54)
[2025-02-06] MEDS: HYCODAN SYRUP 5 ML PO ×2 (02:34→07:54)
[2025-02-06 03:24] VITALS: PULSE 2
[2025-02-06 07:35] VITALS: BP 129/72
[2025-02-06] MEDS: DELTASONE 40 MG PO (07:49)
[2025-02-06] MEDS: PROTONIX 40 MG PO (07:49)
[2025-02-06] MEDS: TESSALON PERLES 200 MG PO (07:49)
[2025-02-06] MEDS: SYMBICORT 160/4.5 MCG INHALER 2 PUFF INH (07:49)
[2025-02-06] MEDS: MIRALAX 17 GRAMS PO (07:49)
[2025-02-06 08:09] LABS: Glucose - Point of Care 112 mg/dl (70-99)
[2025-02-06] MEDS: NOVOLOG FLEXPEN-MODERATE RESISTANCE SC (08:32)
--- NOTE | 2025-02-06 10:07 | CM ---
CM reviewed chart, patient for d/c today.
Confirmed with [employer], BIPAP delivery/set up at patients home 2:00 p.m.
Patient confirms she will call [employer] for transport home.
CM will continue to follow for all d/c needs.
Plan; home with [employer] for BIPAP
--- NOTE | 2025-02-06 13:03 | W.DCSUMMARY ---
Discharge Summary
Discharge Data
Date of Admission: 01/29/25
Date of Discharge: 02/06/25
-
Pending Results: No
Hospital Course
59 female history of asthma PUD anxiety headaches colon cancer s/p colon resection
Presented with ongoing coughing and wheezing for the past 2 weeks. Was concern for asthma exacerbation that was likely triggered by viral upper respiratory tract infection. Required supplemental oxygen. Pulmonary was consulted started on BiPAP
for concern of excessive dynamic airway compromise versus tracheomalacia. Respiratory symptoms did improve. Venous blood gas that was completed on 02/04 demonstrated a pCO2 of 60. Pulmonary therefore ordered home BiPAP. Additionally, was seen by
cardiology for abnormal EKG which showed diffuse T wave inversions however this was similar to previous hospitalizations suggesting abnormalities chronic. Transthoracic echocardiogram was completed demonstrating hyperdynamic LV function no
significant valvular pathology. Cardiology recommended outpatient follow-up with potential for consideration of ischemic evaluation.
Will need continued outpatient cardiology, pulmonary PCP follow-up. Will provide 5-day dose of prednisone with last dose being on 02/09.
CXR
IMPRESSION:
No acute cardiopulmonary process.
CTAP
IMPRESSION:
CHEST CTA:
1. Mild subsegmental atelectasis and scarring in the basilar segments of the lower lobes (left greater than right).
2. Mildly decreased bilateral lung volumes.
3. Mild cardiomegaly.
ABDOMEN and PELVIS:
1. Moderate diffuse hepatic steatosis.
2. Gallbladder sludge.
3. Previous right hemicolectomy.
4. Severe diverticulosis in the sigmoid colon.
5. Mild scarring in the upper pole of the left kidney.
6. Severe lower lumbar facet joint arthrosis.
7. 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
CXR
IMPRESSION:
Low lung volumes.
No acute pulmonary process.
Seen and examined the day of discharge which was 02/06/2025. No new complaints. No acute overnight events.
NAD
Scleral Anicteric
MMM
No JVD
CTABL
RRR, S1/S2
Soft, NT, ND, BS+
Warm, Dry
AAOx3
Calm
More than 30 minutes spent in discharge including
Final examination of the patient
Summarizing hospital stay
Instructions for continuing care to all relevant caregivers
Preparation of discharge records, prescriptions, and referral forms
Total time spent (in minutes): 33mins
Discharge Plan
-
Patient Disposition: Home (Routine Discharge)
Discharge Diagnosis/Procedures: EDAC vs Tracheomalaicia
Asthma exacterbation
Acute on chronic hypoxic respiratory failure
Condition: Good
Diet: As tolerated
Activity: As tolerated
Activity Restrictions/Additional Instructions:
Presented with ongoing coughing and wheezing for the past 2 weeks. Was concern for asthma exacerbation that was likely triggered by viral upper respiratory tract infection. Required supplemental oxygen. Pulmonary was consulted started on BiPAP
for concern of excessive dynamic airway compromise versus tracheomalacia. Respiratory symptoms did improve. Venous blood gas that was completed on 02/04 demonstrated a pCO2 of 60. Pulmonary therefore ordered home BiPAP. Additionally, was seen by
cardiology for abnormal EKG which showed diffuse T wave inversions however this was similar to previous hospitalizations suggesting abnormalities chronic. Transthoracic echocardiogram was completed demonstrating hyperdynamic LV function no
significant valvular pathology. Cardiology recommended outpatient follow-up with potential for consideration of ischemic evaluation.
Will need continued outpatient cardiology, pulmonary PCP follow-up. Will provide 5-day dose of prednisone with last dose being on 02/09.
CXR
IMPRESSION:
No acute cardiopulmonary process.
CTAP
IMPRESSION:
CHEST CTA:
1. Mild subsegmental atelectasis and scarring in the basilar segments of the lower lobes (left greater than right).
2. Mildly decreased bilateral lung volumes.
3. Mild cardiomegaly.
ABDOMEN and PELVIS:
1. Moderate diffuse hepatic steatosis.
2. Gallbladder sludge.
3. Previous right hemicolectomy.
4. Severe diverticulosis in the sigmoid colon.
5. Mild scarring in the upper pole of the left kidney.
6. Severe lower lumbar facet joint arthrosis.
7. 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
CXR
IMPRESSION:
Low lung volumes.
No acute pulmonary process.
Referrals:
Tamela Mathis PA-C [Family Provider, Internal Medicine]
Heather Wong PA-C [Specified Professional Personl, Cardiology] - 03/04/25 7:40 am
Referral Note: You have a cardiology follow-up appointment at the [place] office. Please call with questions
Konrad Navarro MD [Active, Pulmonary Medicine] - in two to three weeks
Referral Note: PFT and sleep study
Prescriptions:
New
prednisone 20 mg Tablet
40 mg PO DAILY Qty: 3 0RF
pantoprazole 40 mg Tablet,Delayed Release (Dr/Ec)
40 mg PO DAILY Qty: 28 0RF
Chloraseptic Sore Throat 6-10 mg Lozenge
1 dat PO Q4HPRN PRN (Reason: sore throat) Qty: 6 0RF
hydrocodone-homatropine [Hycodan] 5-1.5 mg/5 mL (5 mL) Solution
5 ml PO Q4HPRN PRN (Reason: cough) 2 Days Qty: 200 0RF
ipratropium-albuterol 0.5 mg-3 mg(2.5 mg base)/3 mL Solution For Nebulization
3 ml inhalation R Q4HPRN PRN (Reason: shortness of breath) Qty: 180 0RF
budesonide-formoterol [Symbicort] 160-4.5 mcg/actuation Hfa Aerosol Inhaler
2 puff inhalation R BID Qty: 10.2 0RF
guaifenesin 100 mg/5 mL Liquid
200 mg PO Q4HPRN PRN (Reason: cough) Qty: 1000 0RF
Continued
trazodone 50 mg Tablet
50 mg PO HSPRN PRN (Reason: sleep)
citalopram [Celexa] 10 mg Tablet
10 mg PO HS
benzonatate 100 mg Capsule
100 mg PO BIDPRN PRN (Reason: cough)
Discontinued
azithromycin 250 mg Tablet
0 mg PO .COMPLEX
Rx Instructions:
For 250 mg dose pack: take 500 mg today (day 1), then 250 mg for 4 days (days 2-5)
prednisone 20 mg Tablet
40 mg PO DAILY
Rx Instructions:
for 5 days starting 01/27/25
Discharge Orders:
Discharge Patient (As Directed); Ordered 02/06/25
Ordered By: Todd Bruno
Discharge Date and Time
Discharge Date/Time: 02/06/25 11:31
Print Language: FRISIAN
== END 2025-02-06 11:31 | disposition home health service (06) | DRG 202 ==
LOC: 4 WEST ACU 15:20
PROVIDERS: Clinical Nurse Specialist Family Health; Internal Medicine; ADMITTING PHYSICIAN Internal Medicine; ATTENDING PHYSICIAN Hospitalist; CONSULT PHYSICIAN Internal Medicine Cardiovascular Disease; CONSULT PHYSICIAN Internal Medicine Critical Care Medicine; EMERGENCY PHYSICIAN Emergency Medicine; FAMILY PHYSICIAN Physician Assistant
DX: J45.42 Moderate persistent asthma with status asthmaticus (principal); J98.11 Atelectasis; Z68.41 Body mass index [BMI] 40.0-44.9, adult; J98.19 Other pulmonary collapse; Z87.891 Personal history of nicotine dependence; R06.89 Other abnormalities of breathing; F32.A Depression, unspecified; K57.30 Diverticulosis of large intestine without perforation or abscess without bleeding; E66.09 Other obesity due to excess calories; J06.9 Acute upper respiratory infection, unspecified; R09.02 Hypoxemia
CPT/HCPCS: 71045; 71275; 74177; 80048; 80053; 80061; 82805; 82962; 83036; 83880; 84484; 85025; 85027; 87502; 87811; 90656; 93005; 93306; 94640; 94644; 94660; 96374; 97110; 97162; 99285; G0008; Q9950; Q9967

== ENCOUNTER → 2025-03-06 21:15 | Outpatient (REF) | payer OTHER, SELFPAY | LOC: DHSLP 21:15 | PROVIDERS: ATTENDING PHYSICIAN Internal Medicine Critical Care Medicine; FAMILY PHYSICIAN Physician Assistant | DX: G47.33 Obstructive sleep apnea (adult) (pediatric) (principal) | CPT/HCPCS: 95811 ==

== ENCOUNTER → 2025-03-19 12:52 | Outpatient (REF) | payer OTHER, SELFPAY | LOC: RAD 12:52 | PROVIDERS: ATTENDING PHYSICIAN Physician Assistant; OTHER PHYSICIAN Nurse Practitioner Family | DX: E04.9 Nontoxic goiter, unspecified (principal); R06.02 Shortness of breath; J45.20 Mild intermittent asthma, uncomplicated | CPT/HCPCS: 76536; 88738; 94010; 94727; 94729 ==

== ENCOUNTER → 2025-03-26 07:47 | Outpatient (REF) | payer OTHER, SELFPAY | LOC: PET 07:47 | PROVIDERS: ATTENDING PHYSICIAN Physician Assistant | DX: R06.02 Shortness of breath (principal); R94.31 Abnormal electrocardiogram [ECG] [EKG]; J45.909 Unspecified asthma, uncomplicated | CPT/HCPCS: 78431; A9555; J2785 ==